=== PATIENT | male | born 1945 | race Caucasian/White ===

== ENCOUNTER 2017-03-17 06:49 | Inpatient (IN) | payer MEDICARE ==
[2017-03-17] VITALS (10 sets, daily range): BP systolic 116–143; BP diastolic 62–89; PULSE 83–111; RESP 16–20; TEMP 98.1–98.8; O2SAT 96–100
[~2017-03-17] VITALS: Ht 170.2 cm; Wt 113.5 kg
[~2017-03-17 06:49] MED LIST: ATOR10 PO; CARD240C6 PO; DIGO0.253 PO; LEVO50TA4 PO; NORC7.5T PO; RIVA10 PO; TAB-TAB PO
[2017-03-17] MEDS ORDERED: ASPIRIN 81 MG CHEW TAB PO ONE (07:15)
[2017-03-17] MEDS ORDERED: SODIUM CHLORIDE 0.9% FLUSH 10 ML FLUSH IVF PRN (07:15)
[2017-03-17] MEDS ORDERED: NITROGLYCERIN 2% OINT 1 GM PACKET TOP ONE (07:15)
--- NOTE | 2017-03-17 07:15 | PD ---
HPI Chief Complaint: General Weakness Time Seen by Provider: 07:09 Travel History International Travel<30 days: No Contact w/Intl Traveler<30days: No Traveled to known affect area: No History of Present Illness HPI The patient is a 71 year-old male who presents emergency department for shortness of breath. The patient notes a 1 month history of progressing shortness of breath, worse with exertion that is mildly alleviated at rest. Patient also complains of intermittent left-sided chest pain which she describes as sharp, pleuritic, and worse with inspiration. The patient does state he'll walk 5-10 feet become short of breath, has difficulty walking across the room secondary to shortness of breath. 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 The patient denies any known history of coronary artery disease and is unsure if he is never had a stress test in the past, he denies any previous cardiac catheterization. The patient does have a history of hypertension, hyperlipidemia, A. fib, diabetes, and remote history of smoking, quit in 1987. The patient also complains of bilateral leg weakness secondary to osteoarthritis. Symptoms are moderate, worse with exertion, and mildly alleviated at rest. The patient's primary physician is Dr. Doll. [facility] Past Medical History Arthritis: Yes Cancer: No Cardiovascular Problems: Yes ("FLUTTER" ) High Cholesterol: Yes Diabetes: No Endocrine: Yes Genitourinary: Yes (URINARY FREQUENCY ) Hepatitis: No Hiatal Hernia: No Hypertension: Yes Immune Disorder: No Musculoskeletal: Yes (ARTHRITIS-WALKS WITH CANE) Neurologic: No Psychiatric: No Reproductive: No Respiratory: No Thyroid Disease: Yes Past Surgical History Abdominal Surgery: Yes (1987 EXP LAP WITH POSSIBLE APPENDECTOMY AND COLOSTOMY; REVERSE COLOSTOMY ) AICD: No Body Medical Devices: MESH ABDOMEN Cardiac Surgery: No Ear Surgery: No Endocrine Surgery: No Eye Surgery: No Genitourinary Surgery: No Gynecologic Surgery: No Oral Surgery: No Pacemaker: No Thoracic Surgery: No Other Surgery: Yes (CYST REMOVAL ON FACE ) Social History Alcohol Use: No Tobacco Use: No (quit in 1987) Substance Use: No Allergies-Medications (Allergen,Severity, Reaction): Coded Allergies: No Known Allergies (Unverified , 03/17/17) Reported Meds & Prescriptions Reported Meds & Active Scripts Active Reported [tanzeum pen inj] 30 Mg IN DAILY Metoprolol Tartrate 25 Mg Tab 25 Mg PO BID Digoxin 0.25 Mg Tab 125 Mcg PO DAILY per minor instruction only to take 125 mcg per day Cartia Xt (Diltiazem ER 24 HR) 240 Mg Caper 240 Mg PO DAILY Metformin (Metformin HCl) 500 Mg Tab 500 Mg PO DAILY With a meal Losartan (Losartan Potassium) 50 Mg Tab 50 Mg PO DAILY Levothyroxine (Levothyroxine Sodium) 50 Mcg Tab 50 Mcg PO DAILY Atorvastatin (Atorvastatin Calcium) 10 Mg Tab 10 Mg PO HS Review of Systems Except as stated in HPI: all other systems reviewed are Neg General / Constitutional: Positive: Fever (intermittent subjective fevers) HENT: No: Lightheadedness Cardiovascular: Positive: Chest Pain or Discomfort, Irregular Rhythm, Tachycardia, Dyspnea on exertion Respiratory: Positive: Shortness of Breath, No: Cough Gastrointestinal: No: Nausea, Vomiting, Abdominal Pain Musculoskeletal: Positive: Weakness, Pain (bilateral knee pain secondary to osteoarthritis) Neurologic: Positive: Weakness Physical Exam Narrative GENERAL: Awake, alert, pleasant 71-year-old male who appears his stated age and is in mild respiratory distress. SKIN: Focused skin assessment warm/dry. HEAD: Atraumatic. Normocephalic. EYES: Pupils equal and round. No scleral icterus. No injection or drainage. ENT: No nasal bleeding or discharge. Mucous membranes pink and moist. NECK: Trachea midline. No JVD. CARDIOVASCULAR: Irregularly irregular RESPIRATORY: Mild tachypnea with a respiratory rate of 22. Scattered rhonchi in the left base. GASTROINTESTINAL: Abdomen soft, non-tender, nondistended. No rebound tenderness. Well-healed midline surgical scar. Large left paracentral hernia with no erythema or tenderness. Scrotal: No erythema noted over the phallus or drainage from the meatus. The scrotum is erythematous with mild induration of the right aspect, mild erythema extends into the perirectal area. Could be early necrotizing fasciitis versus fungal. MUSCULOSKELETAL: No obvious deformities. No clubbing. No cyanosis. No edema. NEUROLOGICAL: Awake and alert. No obvious cranial nerve deficits. Motor grossly within normal limits. Normal speech. PSYCHIATRIC: Appropriate mood and affect; insight and judgment normal. Data Data Last Documented VS Vital Signs Date Time Temp Pulse Resp B/P Pulse Ox O2 Delivery O2 Flow Rate FiO2 03/17/17 07:28 86 143/83 98 Nasal Cannula 2 139/77 03/17/17 07:06 20 03/17/17 06:53 98.1 Orders Electrocardiogram (03/17/17 07:09) B-Type Natriuretic Peptide (03/17/17 07:09) Ckmb (Isoenzyme) Profile (03/17/17 07:09) Complete Blood Count With Diff (03/17/17 07:09) Comprehensive Metabolic Panel (03/17/17 07:09) Magnesium (Mg) (03/17/17 07:09) Prothrombin Time / Inr (Pt) (03/17/17 07:09) Act Partial Throm Time (Ptt) (03/17/17 07:09) Troponin I (03/17/17 07:09) Chest, Single Ap (03/17/17 07:09) Ecg Monitoring (03/17/17 07:09) Bilateral Bp Monitoring (03/17/17 07:09) Iv Access Insert/Monitor (03/17/17 07:09) Oximetry (03/17/17 07:09) Oxygen Administration (03/17/17 07:09) Aspirin Chew (Aspirin Chew) (03/17/17 07:15) Nitroglycerin 2% Oint (Nitroglycerin 2% (03/17/17 07:15) Sodium Chloride 0.9% Flush (Ns Flush) (03/17/17 07:15) Digoxin (03/17/17 07:09) Lactic Acid (03/17/17 07:42) Blood Culture (03/17/17 07:42) Urinalysis - C+S If Indicated (03/17/17 07:42) CKMB (03/17/17 07:20) CKMB% (03/17/17 07:20) Sodium Chlorid 0.9% 500 Ml Inj (Ns 500 M (03/17/17 08:30) Ceftriaxone Inj (Rocephin Inj) (03/17/17 08:30) Azithromycin Inj (Zithromax Inj) (03/17/17 08:30) Sodium Chlor 0.9% 1000 Ml Inj (Ns 1000 M (03/17/17 08:30) Ct Abd/Pel W Iv Contrast(Rout) (03/17/17 ) Admit Order (Ed Use Only) (03/17/17 09:03) Labs Laboratory Tests Test 03/17/17 03/17/17 07:20 08:28 White Blood Count 30.4 TH/MM3 Red Blood Count 5.46 MIL/MM3 Hemoglobin 14.9 GM/DL Hematocrit 44.8 % Mean Corpuscular Volume 82.1 FL Mean Corpuscular Hemoglobin 27.2 PG Mean Corpuscular Hemoglobin 33.2 % Concent Red Cell Distribution Width 14.1 % Platelet Count 308 TH/MM3 Mean Platelet Volume 9.1 FL Neutrophils (%) (Auto) 88.2 % Lymphocytes (%) (Auto) 6.6 % Monocytes (%) (Auto) 3.5 % Eosinophils (%) (Auto) 1.1 % Basophils (%) (Auto) 0.6 % Neutrophils # (Auto) 26.8 TH/MM3 Lymphocytes # (Auto) 2.0 TH/MM3 Monocytes # (Auto) 1.1 TH/MM3 Eosinophils # (Auto) 0.3 TH/MM3 Basophils # (Auto) 0.2 TH/MM3 CBC Comment AUTO DIFF Differential Total Cells 100 Counted Neutrophils % (Manual) 81 % Band Neutrophils % 11 % Lymphocytes % 4 % Monocytes % 3 % Eosinophils % 1 % Neutrophils # (Manual) 28.0 TH/MM3 Differential Comment FINAL DIFF MANUAL Platelet Estimate NORMAL Platelet Morphology Comment NORMAL Red Cell Morphology Comment NORMAL Prothrombin Time 13.6 SEC Prothromb Time International 1.2 RATIO Ratio Activated Partial 25.9 SEC Thromboplast Time Sodium Level 134 MEQ/L Potassium Level 5.5 MEQ/L Chloride Level 100 MEQ/L Carbon Dioxide Level 22.1 MEQ/L Anion Gap 12 MEQ/L Blood Urea Nitrogen 18 MG/DL Creatinine 1.06 MG/DL Estimat Glomerular Filtration 69 ML/MIN Rate Random Glucose 191 MG/DL Calcium Level 9.2 MG/DL Magnesium Level 2.3 MG/DL Total Bilirubin 0.6 MG/DL Aspartate Amino Transf 132 U/L (AST/SGOT) Alanine Aminotransferase 33 U/L (ALT/SGPT) Alkaline Phosphatase 122 U/L Total Creatine Kinase 1989 U/L Creatine Kinase MB 6.9 NG/ML Creatine Kinase MB % 0.3 % Troponin I LESS THAN 0.02 NG/ML B-Type Natriuretic Peptide 122 PG/ML Total Protein 7.8 GM/DL Albumin 2.4 GM/DL Digoxin Level 0.7 NG/ML Lactic Acid Level 1.7 mmol/L MDM Medical Decision Making Medical Screen Exam Complete: Yes Emergency Medical Condition: Yes Medical Record Reviewed: Yes Interpretation(s) EKG reveals atrial fibrillation with a rate 81. Low QRS voltage precordial leads. Laboratory Tests Test 03/17/17 07:20 White Blood Count 30.4 TH/MM3 Red Blood Count 5.46 MIL/MM3 Hemoglobin 14.9 GM/DL Hematocrit 44.8 % Mean Corpuscular Volume 82.1 FL Mean Corpuscular Hemoglobin 27.2 PG Mean Corpuscular Hemoglobin 33.2 % Concent Red Cell Distribution Width 14.1 % Platelet Count 308 TH/MM3 Mean Platelet Volume 9.1 FL Neutrophils (%) (Auto) 88.2 % Lymphocytes (%) (Auto) 6.6 % Monocytes (%) (Auto) 3.5 % Eosinophils (%) (Auto) 1.1 % Basophils (%) (Auto) 0.6 % Neutrophils # (Auto) 26.8 TH/MM3 Lymphocytes # (Auto) 2.0 TH/MM3 Monocytes # (Auto) 1.1 TH/MM3 Eosinophils # (Auto) 0.3 TH/MM3 Basophils # (Auto) 0.2 TH/MM3 CBC Comment AUTO DIFF Differential Total Cells 100 Counted Neutrophils % (Manual) 81 % Band Neutrophils % 11 % Lymphocytes % 4 % Monocytes % 3 % Eosinophils % 1 % Neutrophils # (Manual) 28.0 TH/MM3 Differential Comment FINAL DIFF MANUAL Platelet Estimate NORMAL Platelet Morphology Comment NORMAL Red Cell Morphology Comment NORMAL Prothrombin Time 13.6 SEC Prothromb Time International 1.2 RATIO Ratio Activated Partial 25.9 SEC Thromboplast Time Sodium Level 134 MEQ/L Potassium Level 5.5 MEQ/L Chloride Level 100 MEQ/L Carbon Dioxide Level 22.1 MEQ/L Anion Gap 12 MEQ/L Blood Urea Nitrogen 18 MG/DL Creatinine 1.06 MG/DL Estimat Glomerular Filtration 69 ML/MIN Rate Random Glucose 191 MG/DL Calcium Level 9.2 MG/DL Magnesium Level 2.3 MG/DL Total Bilirubin 0.6 MG/DL Aspartate Amino Transf 132 U/L (AST/SGOT) Alanine Aminotransferase 33 U/L (ALT/SGPT) Alkaline Phosphatase 122 U/L Total Creatine Kinase 1989 U/L Creatine Kinase MB 6.9 NG/ML Creatine Kinase MB % 0.3 % Troponin I LESS THAN 0.02 NG/ML B-Type Natriuretic Peptide 122 PG/ML Total Protein 7.8 GM/DL Albumin 2.4 GM/DL Digoxin Level 0.7 NG/ML Last Impressions Chest X-Ray 03/17/17 0709 Signed Impressions: Service Date/Time: Friday, March 17, 2017 07:15 - CONCLUSION: No acute disease. Ashish Giles MD Abdomen/Pelvis CT 03/17/17 0000 Signed Impressions: Service Date/Time: Friday, March 17, 2017 09:25 - CONCLUSION: 1. 14 cm cystic area within the scrotum on the left as described above. There is no significant inflammatory change and this may reflect sebaceous type cysts. 2. 12 cm pseudocyst versus hematoma versus less likely abscess involving the spleen. Again there is no significant surrounding inflammatory process. 3. Large nonincarcerated abdominal wall hernia. Ignacio Camargo MD Differential Diagnosis Differential diagnosis includes atrial fibrillation with RVR, congestive heart failure, cardiomyopathy, acute coronary syndrome, pleural effusion, pneumonia, pulmonary embolism, hyponatremia, sepsis. Narrative Course IV was established, labs are drawn and sent, and the patient was placed on cardiac telemetry monitoring and continuous pulse oximetry monitoring. EKG was ordered and interpreted. Chest x-ray was obtained. The patient was administered aspirin, nitroglycerin 0.5 inches to the chest wall, and monitored in the emergency department. The patient's chest x-ray reveals no acute disease. However, white count was elevated at 30.4, therefore, blood culture, lactic acid, and UA were sent to lab. No evidence of pneumonia on chest x-ray, however, patient has rhonchi in the left base, suspicious of left lower lobe pneumonia. Patient does have bandemia with 11% with elevated white count, therefore, was covered with Rocephin and Zithromax. Patient's CPK is greater than 1900, consistent with rhabdomyolysis, therefore, patient was administered normal saline 500 cc, pending BNP. The patient was not immediately administered 30 mg/kg of IV fluids for possible sepsis, awaiting BNP. Patient' s elevated CPK possibly could be secondary to the atorvastatin, the patient's atorvastatin should be held. The patient has [facility], therefore, [facility] was paged for admission. The patient's BNP was 122, therefore, 1 L of normal saline was ordered after the initial bolus. The patient was reevaluated, abdomen was soft and benign with well-healed surgical scar, scrotum was a little erythematous with skin changes of the right aspect of the scrotum, patient states that has been present for several months. Therefore, CT the abdomen and pelvis was ordered to rule out abscess/necrotizing fasciitis. I discussed the patient Dr. Watkins who agrees with admission. Sepsis Criteria SIRS Criteria (2 or more): Heart rate over 90, WBC > 76085, < 4000 or > 10% bands Criteria Outcome: Meets SIRS criteria Physician Communication Physician Communication [facility] was paged for admission. I discussed the patient Dr. Watkins who agrees with admission. Diagnosis Primary Impression: Rhabdomyolysis Qualified Code: M62.82 - Non-traumatic rhabdomyolysis Additional Impressions: Leukocytosis Qualified Code: D72.825 - Bandemia Dyspnea on exertion Admitting Information Admitting Physician Requests: Admit Condition: Stable James Roberson MD March 17, 2017 07:15
[2017-03-17 07:35] LABS: AUTOMATED NEUTROPHIL # 26.8 TH/MM3 (1.8-7.7); BASOPHIL # 0.2 TH/MM3 (0-0.2); BASOPHIL % 0.6 % (0.0-2.0); EOSINOPHIL # 0.3 TH/MM3 (0-0.4); EOSINOPHIL % 1.1 % (0.0-4.0); HEMATOCRIT 44.8 % (39.0-51.0); LYMPH % 6.6 % (9.0-44.0); MEAN CELL VOLUME 82.1 FL (80.0-100.0); MEAN CORPUSCULAR HEMOGLOBIN 27.2 PG (27.0-34.0); MEAN CORPUSCULAR HGB CONC 33.2 % (32.0-36.0); MONO % 3.5 % (0.0-8.0); NEUT % 88.2 % (16.0-70.0); PLATELET COUNT 308 TH/MM3 (150-450); RED BLOOD COUNT 5.46 MIL/MM3 (4.50-5.90); RED CELL DISTRIBUTION WIDTH 14.1 % (11.6-17.2); WHITE BLOOD COUNT 30.4 TH/MM3 (4.0-11.0)
[2017-03-17 07:36] LABS: HEMO FLAGS AUTO DIFF
[2017-03-17] MEDS ORDERED: ATOR10TA15 PO (07:37)
[2017-03-17] MEDS ORDERED: DIGO0.25 PO (07:37)
[2017-03-17] MEDS ORDERED: LOSA50TA PO (07:37)
[2017-03-17] MEDS ORDERED: TANZEUM IN (07:37)
[2017-03-17] MEDS ORDERED: METF500T PO (07:37)
[2017-03-17] MEDS ORDERED: METO25TA3 PO (07:37)
[2017-03-17] MEDS ORDERED: LEVO50TA4 PO (07:37)
[2017-03-17] MEDS ORDERED: CART240C PO (07:37)
--- NOTE | 2017-03-17 07:42 | RADRPT ---
EXAM DATE/TIME: 03/17/2017 07:15 [facility] COMPARISON: CHEST SINGLE AP, July 26, 2014, 11:08. INDICATIONS : Left side chest pains and pressure radiating into left shoulder. MEDICAL HISTORY : None. SURGICAL HISTORY : None. ENCOUNTER: Initial ACUITY: 1 day PAIN SCORE: 9/10 LOCATION: Left chest FINDINGS: A single view of the chest demonstrates the lungs to be symmetrically aerated without evidence of mas s, infiltrate or effusion. The cardiomediastinal contours are unremarkable. Osseous structures are intact. CONCLUSION: No acute disease. Ashish Giles MD on March 17, 2017 at 7:39 Board Certified Radiologist. This report was verified electronically.
[2017-03-17 07:46] LABS: APTT (PATIENT) 25.9 SEC (24.3-30.1); INTERNATIONAL NORMALIZED RATIO 1.2 RATIO; PROTHROMBIN TIME - PATIENT 13.6 SEC (9.8-11.6)
[2017-03-17 08:05] LABS: BANDS 11 % (0-6); EOSINOPHILS 1 % (0-4); PLATELET ESTIMATE SMEAR NORMAL (NORMAL); PLATELET MORPHOLOGY NORMAL (NORMAL); POLYS (SEG NEUTROPHILS) 81 % (16-70); SCAN/DIFF FINAL DIFF MANUAL; WBC DIFF SAMPLE 100
[2017-03-17 08:06] LABS: ANION GAP 12 MEQ/L (5-15)
[2017-03-17 08:13] LABS: ALKALINE PHOSPHATASE 122 U/L (45-117); ALT (GPT) 33 U/L (12-78); AST (GOT) 132 U/L (15-37); BICARBONATE 22.1 MEQ/L (21.0-32.0); BLOOD UREA NITROGEN 18 MG/DL (7-18); CHLORIDE 100 MEQ/L (98-107); CREATINE KINASE 1989 U/L (39-308); DIGOXIN 0.7 NG/ML (0.8-2.0); GLOMERULAR FILTRATION RATE 69 ML/MIN (>89); MAGNESIUM 2.3 MG/DL (1.5-2.5); SODIUM (NA) 134 MEQ/L (136-145); TOTAL BILIRUBIN ADULT 0.6 MG/DL (0.2-1.0)
[2017-03-17 08:15] LABS: POTASSIUM 5.5 MEQ/L (3.5-5.1)
[2017-03-17 08:27] LABS: CKMB 6.9 NG/ML (0.5-3.6)
[2017-03-17] MEDS ORDERED: SODIUM CHLOR 0.9% 1000 ML INJ 1,000 ML IV ONE (08:30)
[2017-03-17] MEDS ORDERED: cefTRIAXone INJ 1,000 MG in SODIUM CHLORIDE 0.9% INJ 100 ML IV ONE (08:30)
[2017-03-17] MEDS ORDERED: AZITHROMYCIN INJ 500 MG in SODIUM CHLOR 0.9% 250 ML INJ 250 ML IV ONE (08:30)
[2017-03-17] MEDS ORDERED: SODIUM CHLORID 0.9% 500 ML INJ 500 ML IV ONE (08:30)
[2017-03-17] MEDS: METFORMIN HOLD POST IV CONTRAST SCH (09:30)
[2017-03-17] MEDS ORDERED: IOHEXOL 350 MG/ML 10 ML VIAL (for RAD DIAG) IV ONE (09:42)
[2017-03-17 10:11] LABS: BACTERIA, URINE RARE /hpf; BLOOD, URINE MOD (NEG); COMMENT (UR) CULT NOT INDICATED; CULTURE IF INDICATED CULT NOT INDICATED; GLUCOSE,URINE 150 mg/dL (NEG); HYALINE CAST, URINE 8 /lpf (RARE); KETONE, URINE 10 mg/dL (NEG); MUCUS URINE MOD /lpf (OCC); NITRITE,URINE NEG (NEG); SQUAMOUS EPITHELIAL CELL URINE 5 /hpf (0-5); URINE COLOR YELLOW (YELLW/STRAW)
--- NOTE | 2017-03-17 10:26 | RADRPT ---
EXAM DATE/TIME: 03/17/2017 09:25 [facility] COMPARISON: No previous studies available for comparison. INDICATIONS : Upper abdominal pain and lower abdominal pain. Evaluate for scrotal abscess. IV CONTRAST: 85 cc Omnipaque 350 (iohexol) IV ORAL CONTRAST: No oral contrast ingested. RADIATION DOSE: 15.99 CTDIvol (mGy) MEDICAL HISTORY : Diabetes mellitus type 2. Hypertension. Abdominal abscess. SURGICAL HISTORY : Colostomy. Colostomy reversal. ENCOUNTER: Initial ACUITY: 2 days PAIN SCALE: 2/10 LOCATION: Abdomen. TECHNIQUE: Volumetric scanning of the abdomen and pelvis was performed. Using automated exposure control and ad justment of the mA and/or kV according to patient size, radiation dose was kept as low as reasonably achievable to obtain optimal diagnostic quality images. FINDINGS: Examination of the lung bases demonstrates no abnormality. No pleural fluid is identified. No pulmona ry nodules are present. The gallbladder and pancreas are unremarkable. No intrahepatic or extrahepati c ductal dilatation is seen. Examination the spleen demonstrates a large hypodense fluid collection m easuring 12 CM by 9 CM occupying the superior half of the spleen which may be related to old hematoma pseudocyst or less likely abscess. There is only minimal inflammatory change surrounding this. No ab normally enlarged lymph nodes are identified. There is a large left lateral anterior abdominal wall h ernia containing small bowel with a wide defect and no signs of incarceration. Examination of the pelvis demonstrates no evidence of free fluid or pelvic mass. No abnormally enlarg ed inguinal or retroperitoneal lymph nodes are present. The bladder is unremarkable. There is a 3.4 c m fluid density area without surrounding inflammatory change. The appearance may reflect sebaceous ty pe cyst rather than abscess and this would be accessible to percutaneous aspiration. CONCLUSION: 1. 14 cm cystic area within the scrotum on the left as described above. There is no significant infla mmatory change and this may reflect sebaceous type cysts. 2. 12 cm pseudocyst versus hematoma versus less likely abscess involving the spleen. Again there is n o significant surrounding inflammatory process. 3. Large nonincarcerated abdominal wall hernia. Ignacio Camargo MD on March 17, 2017 at 10:16 Board Certified Radiologist. This report was verified electronically.
[2017-03-17] MEDS: SODIUM CHLOR 0.9% 1000 ML INJ 1,000 ML IV SCH ×2 (12:00→22:59)
--- NOTE | 2017-03-17 12:14 | HHI.HP ---
HPI Service [facility] Primary Care Physician Jj Doll M.D. Admission Diagnosis rhabdomyolysis, leukocytosis with bandemia, dyspnea on exertion Chief Complaint: sob Travel History International Travel<30 Days: No Contact w/Intl Traveler <30 Da: No Traveled to Known Affected Are: No History of Present Illness Pt is 71 yo with dm, afib who had been progressively more sob. says about 2 weeks ago he fell off bed after returning from bathroom. He describes alot of nocturia and bph problems. He later fell again. At once point was on floor for 5 hours. Described 2 episodes of shaking chills with teeth chattering. no n/v/d. Review of Systems Other sob shaking chills falls x 2 Past Family Social History Past Medical History Atrial fibrillation Diabetes mellitus, type 2 HTN Hyperlipidemia Hypothyroidism Obesity Osteoarthritis bph Past Surgical History Left total knee arthroplasty in 2013 colostomy and reversal. Reported Medications Metoprolol Tartrate 25 Mg Tab 25 Mg PO BID Digoxin 0.25 Mg Tab 125 Mcg PO DAILY per dr bell instruction only to take 125 mcg per day Cartia Xt (Diltiazem ER 24 HR) 240 Mg Caper 240 Mg PO DAILY Metformin (Metformin HCl) 500 Mg Tab 500 Mg PO DAILY With a meal Losartan (Losartan Potassium) 50 Mg Tab 50 Mg PO DAILY Levothyroxine (Levothyroxine Sodium) 50 Mcg Tab 50 Mcg PO DAILY Atorvastatin (Atorvastatin Calcium) 10 Mg Tab 10 Mg PO HS ---ASA 325mg PO DAILY Allergies: Coded Allergies: No Known Allergies (Unverified , 03/17/17) Family History Mother from gastric cancer Father from CAD and diabetes Social History Hx of tobacco use, smoked 2ppd x 22 years Denies any alcohol or illicit drug use Physical Exam Vital Signs Vital Signs Date Time Temp Pulse Resp B/P Pulse Ox O2 Delivery O2 Flow Rate FiO2 03/17/17 11:38 98 20 120/84 99 Nasal Cannula 2 03/17/17 07:28 86 143/83 98 Nasal Cannula 2 139/77 03/17/17 07:27 100 Nasal Cannula 2 03/17/17 07:13 99 Nasal Cannula 2 03/17/17 07:06 105 20 03/17/17 06:53 98.1 95 16 124/89 97 Physical Exam GENERAL: This is a well-nourished, well-developed patient, in no apparent distress. HEENT: Atraumatic. Normocephalic. No temporal or scalp tenderness. No scleral icterus. Airway patent. NECK: Trachea midline, supple, nontender. CARDIO: Regular. RESP: CTA bilaterally. No wheezes, rales, or rhonchi. ABD: +BS, soft, non-tender, nondistended. EXT: Extremities without clubbing, cyanosis, or edema. NEURO: Awake and alert. Motor and sensory grossly within normal limits. Normal speech. Laboratory Laboratory Tests Test 03/17/17 03/17/17 03/17/17 07:20 08:28 09:59 White Blood Count 30.4 Red Blood Count 5.46 Hemoglobin 14.9 Hematocrit 44.8 Mean Corpuscular Volume 82.1 Mean Corpuscular Hemoglobin 27.2 Mean Corpuscular Hemoglobin 33.2 Concent Red Cell Distribution Width 14.1 Platelet Count 308 Mean Platelet Volume 9.1 Neutrophils (%) (Auto) 88.2 Lymphocytes (%) (Auto) 6.6 Monocytes (%) (Auto) 3.5 Eosinophils (%) (Auto) 1.1 Basophils (%) (Auto) 0.6 Neutrophils # (Auto) 26.8 Lymphocytes # (Auto) 2.0 Monocytes # (Auto) 1.1 Eosinophils # (Auto) 0.3 Basophils # (Auto) 0.2 CBC Comment AUTO DIFF Differential Total Cells 100 Counted Neutrophils % (Manual) 81 Band Neutrophils % 11 Lymphocytes % 4 Monocytes % 3 Eosinophils % 1 Neutrophils # (Manual) 28.0 Differential Comment FINAL DIFF MANUAL Platelet Estimate NORMAL Platelet Morphology Comment NORMAL Red Cell Morphology Comment NORMAL Prothrombin Time 13.6 Prothromb Time International 1.2 Ratio Activated Partial 25.9 Thromboplast Time Sodium Level 134 Potassium Level 5.5 Chloride Level 100 Carbon Dioxide Level 22.1 Anion Gap 12 Blood Urea Nitrogen 18 Creatinine 1.06 Estimat Glomerular Filtration 69 Rate Random Glucose 191 Calcium Level 9.2 Magnesium Level 2.3 Total Bilirubin 0.6 Aspartate Amino Transf 132 (AST/SGOT) Alanine Aminotransferase 33 (ALT/SGPT) Alkaline Phosphatase 122 Total Creatine Kinase 1989 Creatine Kinase MB 6.9 Creatine Kinase MB % 0.3 Troponin I LESS THAN 0.02 B-Type Natriuretic Peptide 122 Total Protein 7.8 Albumin 2.4 Digoxin Level 0.7 Lactic Acid Level 1.7 Urine Color YELLOW Urine Turbidity HAZY Urine pH 6.0 Urine Specific [place] 1.046 Urine Protein 30 Urine Glucose (UA) 150 Urine Ketones 10 Urine Occult Blood MOD Urine Nitrite NEG Urine Bilirubin NEG Urine Urobilinogen LESS THAN 2.0 Urine Leukocyte Esterase NEG Urine RBC 4 Urine WBC 3 Urine Squamous Epithelial 5 Cells Urine Bacteria RARE Urine Hyaline Casts 8 Urine Mucus MOD Microscopic Urinalysis Comment CULT NOT INDICATED Date/Time Procedure Status Source Growth 03/17/17 08:28 Aerobic Blood Culture Received Blood Peripheral Pending 03/17/17 08:28 Anaerobic Blood Culture Received Blood Peripheral Pending Result Diagram: 03/17/17 0720 03/17/17 0720 Imaging Last Impressions Chest X-Ray 03/17/17 0709 Signed Impressions: Service Date/Time: Friday, March 17, 2017 07:15 - CONCLUSION: No acute disease. Ashish Giles MD Abdomen/Pelvis CT 03/17/17 0000 Signed Impressions: Service Date/Time: Friday, March 17, 2017 09:25 - CONCLUSION: 1. 14 cm cystic area within the scrotum on the left as described above. There is no significant inflammatory change and this may reflect sebaceous type cysts. 2. 12 cm pseudocyst versus hematoma versus less likely abscess involving the spleen. Again there is no significant surrounding inflammatory process. 3. Large nonincarcerated abdominal wall hernia. Ignacio Camargo MD Assessment and Plan Problem List: (1) Dyspnea on exertion Status: Acute Plan: Pt with dm and afib increase falling at home..rhabdomyolysis sob. severe leukocytosis. unclear etiology. eval for pna rigors. eval for bacteremia general weakness. yeast infections groin/folds abnormal ct a/p discusses what appears to be chronic findings in spleen/scrotum and less likely infectious.. ..further w/up on ct findings as needed. blood cx's ivf and recheck ck cont abx initiated. echo. image chest. telemetry. eval for afib rate control. recently added bb per pcp. ssi dvt prophylaxis (2) Rhabdomyolysis Status: Acute Plan: see above (3) Afib Status: Chronic Plan: see above (4) Leukocytosis Status: Acute Plan: see above (5) Hyperlipidemia Status: Chronic (6) Hypothyroid Status: Chronic (7) HTN (hypertension) Status: Chronic Physician Certification 2 Midnight Certification Type: Admission for Inpatient Services Order for Inpatient Services 3The services are ordered in accordance with Medicare regulations or non- Medicare payer requirements, as applicable. In the case of services not specified as inpatient-only, they are appropriately provided as inpatient services in accordance with the 2-midnight benchmark. Estimated LOS (days): 3 3 days is the estimated time the patient will need to remain in the hospital, assuming treatment plan goals are met and no additional complications. Post-Hospital Plan: Home Problem Qualifiers (1) Rhabdomyolysis: Qualified Code: M62.82 - Non-traumatic rhabdomyolysis (2) Leukocytosis: Qualified Code: D72.825 - Bandemia Nayla Rodriguez March 17, 2017 12:14 James Watkins MD March 17, 2017 22:17
[2017-03-17] MEDS: NYSTATIN 100,000 U/GM PWD 15 GM BTL TOPICAL SCH ×2 (18:43→21:17)
[2017-03-17] MEDS: METOPROLOL TARTRATE 25 MG TAB PO SCH (21:18)
[2017-03-17] MEDS: INSULIN ASPART SUPPLEMENTAL SCALE SQ SCH (21:29)
[2017-03-17] MEDS: traMADol HCL 50 MG TAB PO PRN (22:59)
[2017-03-18] VITALS (8 sets, daily range): BP systolic 124–157; BP diastolic 65–97; PULSE 86–121; RESP 18–20; TEMP 97.7–98.6; O2SAT 92–98
[2017-03-18] MEDS: traMADol HCL 50 MG TAB PO PRN (05:39)
[2017-03-18] MEDS: INSULIN ASPART SUPPLEMENTAL SCALE SQ SCH ×4 (05:39→22:12)
[2017-03-18] MEDS: NYSTATIN 100,000 U/GM PWD 15 GM BTL TOPICAL SCH ×3 (05:39→22:00)
[2017-03-18 05:56] LABS: AUTOMATED NEUTROPHIL # 19.5 TH/MM3 (1.8-7.7); BASOPHIL # 0.3 TH/MM3 (0-0.2); BASOPHIL % 1.2 % (0.0-2.0); EOSINOPHIL # 0.2 TH/MM3 (0-0.4); HEMATOCRIT 37.4 % (39.0-51.0); HEMO FLAGS DIFF FINAL; LYMPH % 10.6 % (9.0-44.0); LYMPHOCYTE # 2.5 TH/MM3 (1.0-4.8); MEAN CELL VOLUME 82.9 FL (80.0-100.0); MEAN CORPUSCULAR HEMOGLOBIN 27.3 PG (27.0-34.0); MONO % 5.4 % (0.0-8.0); NEUT % 81.8 % (16.0-70.0); PLATELET COUNT 258 TH/MM3 (150-450); RED BLOOD COUNT 4.52 MIL/MM3 (4.50-5.90); RED CELL DISTRIBUTION WIDTH 13.7 % (11.6-17.2); WHITE BLOOD COUNT 23.9 TH/MM3 (4.0-11.0)
[2017-03-18 06:31] LABS: POTASSIUM 4.1 MEQ/L (3.5-5.1)
[2017-03-18 06:58] LABS: CKMB 4.8 NG/ML (0.5-3.6)
[2017-03-18] MEDS ORDERED: PNEUMOCOCCAL POLYVALENT INJ 25 MCG/0.5 ML SYR IM ONE (09:00)
--- NOTE | 2017-03-18 09:29 | RADRPT ---
EXAM DATE/TIME: 03/18/2017 08:59 [place] COMPARISON: CT ABDOMEN & PELVIS W CONTRAST, March 17, 2017, 9:25. INDICATIONS : Shortness of breath, left side chest and shoulder pain with inspiration. RADIATION DOSE: 9.33 CTDIvol (mGy) MEDICAL HISTORY : Cardiovascular disease. Hypertension. Diabetes mellitus type 1. SURGICAL HISTORY : Colostomy. ENCOUNTER: Initial ACUITY: 1 day PAIN SCALE: 3/10 LOCATION: Left upper chest TECHNIQUE: Volumetric scanning of the chest was performed. Using automated exposure control and adjustment of t he mA and/or kV according to patient size, radiation dose was kept as low as reasonably achievable to obtain optimal diagnostic quality images. FINDINGS: A small left sided effusion is present. No pulmonary nodules are identified. Examination of the mediastinum demonstrates no abnormally enlarged lymph nodes by CT criteria. No axi llary or hilar abnormalities are identified. Coronary artery calcifications are not present. A 3 cm s ebaceous cyst is present in the anterior right chest wall. The lower fluid collection the spleen is a gain identified. CONCLUSION: 1. Small left effusion Ignacio Camargo MD on March 18, 2017 at 9:25 Board Certified Radiologist. This report was verified electronically.
[2017-03-18] MEDS: METFORMIN HOLD POST IV CONTRAST SCH (09:30)
[2017-03-18] MEDS: DILTIAZEM-CD 240 MG CAP ER PO SCH (09:36)
[2017-03-18] MEDS: LOSARTAN 50 MG TAB PO SCH (09:36)
[2017-03-18] MEDS: LEVOTHYROXINE SODIUM 50 MCG TAB PO SCH (09:36)
[2017-03-18] MEDS: METOPROLOL TARTRATE 25 MG TAB PO SCH ×2 (09:37→21:00)
[2017-03-18] MEDS: DIGOXIN 0.125 MG TAB PO SCH (09:37)
--- NOTE | 2017-03-18 11:20 | EKG ---
Date Performed: 03/17/2017 Time Performed: 07:18:06 PTAGE: 71 years EKG: ATRIAL FIBRILLATION LOW QRS VOLTAGE IN PRECORDIAL LEADS ABNORMAL RHYTHM ECG NO PREVIOUS TRACING DOCTOR: Agustin Hastings Interpretating Date/Time 03/18/2017 11:18:26
[2017-03-18] MEDS: SODIUM CHLOR 0.9% 1000 ML INJ 1,000 ML IV SCH ×2 (11:49→22:10)
--- NOTE | 2017-03-18 17:23 | HHI.PR ---
Subjective Remarks legs still weak hasn't been oob. Objective Vitals heart reg lung cta abd s/nt ext no edema/ ecchymosis on shins/knees. Vital Signs Date Time Temp Pulse Resp B/P Pulse Ox O2 Delivery O2 Flow Rate FiO2 03/18/17 12:00 97.7 98 20 124/75 92 03/18/17 11:35 95 Nasal Cannula 2.00 03/18/17 11:30 94 Nasal Cannula 3.00 03/18/17 09:30 Nasal Cannula 2.00 03/18/17 08:00 98.6 120 18 133/65 97 144/75 03/18/17 04:15 Nasal Cannula 2.00 03/18/17 04:15 98.5 121 18 134/79 95 03/17/17 23:05 98.8 97 18 135/73 98 03/17/17 23:05 Nasal Cannula 2.00 03/17/17 21:08 96 Nasal Cannula 2.00 03/17/17 20:14 111 03/17/17 20:03 Nasal Cannula 2.00 03/17/17 20:03 98.4 83 18 116/74 98 03/17/17 03/17/17 03/18/17 15:00 23:00 07:00 Intake Total 1600 ml 1469 ml 648 ml Output Total 200 ml 350 ml Balance 1600 ml 1269 ml 298 ml Intake Oral 480 ml 240 ml IV Total 1600 ml 989 ml 408 ml Output Urine Total 200 ml 350 ml # Bowel Movements 0 0 Result Diagram: 03/18/17 0330 03/18/17 0330 Imaging Last Impressions Chest X-Ray 03/17/17 0709 Signed Impressions: Service Date/Time: Friday, March 17, 2017 07:15 - CONCLUSION: No acute disease. Ashish Giles MD Abdomen/Pelvis CT 03/17/17 0000 Signed Impressions: Service Date/Time: Friday, March 17, 2017 09:25 - CONCLUSION: 1. 14 cm cystic area within the scrotum on the left as described above. There is no significant inflammatory change and this may reflect sebaceous type cysts. 2. 12 cm pseudocyst versus hematoma versus less likely abscess involving the spleen. Again there is no significant surrounding inflammatory process. 3. Large nonincarcerated abdominal wall hernia. Ignacio Camargo MD A/P Problem List: (1) Dyspnea on exertion Status: Acute Plan: Pt with dm and afib increase falling at home..rhabdomyolysis sob. severe leukocytosis. unclear etiology. eval for pna rigors. eval for bacteremia general weakness. yeast infections groin/folds abnormal ct a/p discusses what appears to be chronic findings in spleen/scrotum and less likely infectious.. ..further w/up on ct findings as needed. blood cx's pending ivf and recheck ck..cont ivf today cont abx initiated. echo. image chest. pending. telemetry. eval for afib rate control. recently added bb per pcp. ..appears he could use better control ssi dvt prophylaxis PT will likely need snf. (2) Rhabdomyolysis Status: Acute Plan: see above (3) Afib Status: Chronic Plan: see above (4) Leukocytosis Status: Acute Plan: see above (5) Hyperlipidemia Status: Chronic (6) Hypothyroid Status: Chronic (7) HTN (hypertension) Status: Chronic Problem Qualifiers (1) Rhabdomyolysis: Qualified Code: M62.82 - Non-traumatic rhabdomyolysis (2) Leukocytosis: Qualified Code: D72.825 - Bandemia James Watkins MD March 18, 2017 17:23
[2017-03-19] VITALS (8 sets, daily range): BP systolic 133–169; BP diastolic 73–91; PULSE 89–111; RESP 18–20; TEMP 97.8–99.1; O2SAT 94–98
[2017-03-19] MEDS: NYSTATIN 100,000 U/GM PWD 15 GM BTL TOPICAL SCH ×3 (05:36→20:51)
[2017-03-19] MEDS: INSULIN ASPART SUPPLEMENTAL SCALE SQ SCH ×4 (05:39→20:55)
[2017-03-19] MEDS: DIGOXIN 0.125 MG TAB PO SCH (07:54)
[2017-03-19] MEDS: LEVOTHYROXINE SODIUM 50 MCG TAB PO SCH (07:54)
[2017-03-19] MEDS: DILTIAZEM-CD 240 MG CAP ER PO SCH (07:54)
[2017-03-19] MEDS: METOPROLOL TARTRATE 25 MG TAB PO SCH (07:54)
[2017-03-19] MEDS: LOSARTAN 50 MG TAB PO SCH (08:14)
[2017-03-19 08:15] LABS: AUTOMATED NEUTROPHIL # 14.8 TH/MM3 (1.8-7.7); BASOPHIL # 0.2 TH/MM3 (0-0.2); BASOPHIL % 0.8 % (0.0-2.0); EOSINOPHIL # 0.3 TH/MM3 (0-0.4); EOSINOPHIL % 1.5 % (0.0-4.0); HEMATOCRIT 39.2 % (39.0-51.0); HEMO FLAGS DIFF FINAL; LYMPHOCYTE # 2.2 TH/MM3 (1.0-4.8); MEAN CELL VOLUME 81.1 FL (80.0-100.0); MEAN CORPUSCULAR HEMOGLOBIN 27.1 PG (27.0-34.0); MEAN CORPUSCULAR HGB CONC 33.5 % (32.0-36.0); MONO % 5.8 % (0.0-8.0); NEUT % 79.9 % (16.0-70.0); PLATELET COUNT 335 TH/MM3 (150-450); RED BLOOD COUNT 4.84 MIL/MM3 (4.50-5.90); RED CELL DISTRIBUTION WIDTH 14.2 % (11.6-17.2); WHITE BLOOD COUNT 18.5 TH/MM3 (4.0-11.0)
[2017-03-19 08:41] LABS: BICARBONATE 24.8 MEQ/L (21.0-32.0)
[2017-03-19] MEDS ORDERED: DOCUSATE SODIUM 100 MG CAP PO ONE (09:15)
[2017-03-19] MEDS ORDERED: POLYETHYLENE GLYCOL 17 GM PKG PO ONE (09:15)
[2017-03-19] MEDS: SODIUM CHLOR 0.9% 1000 ML INJ 1,000 ML IV SCH ×2 (09:15→17:42)
[2017-03-19] MEDS: traMADol HCL 50 MG TAB PO PRN ×2 (12:00→16:30)
[2017-03-19] MEDS ORDERED: METOPROLOL TARTRATE 25 MG TAB PO ONE (12:00)
--- NOTE | 2017-03-19 13:00 | EC ---
Study Study Date:03/18/2017 STUDY CONCLUSIONS SUMMARY - Left ventricle: The cavity size was normal. Wall thickness was normal. Systolic function was normal. The estimated ejection fraction was in the range of 55% to 60%. Wall motion was normal; there were no regional wall motion abnormalities. - Aortic valve: Valve area: 2.15cm^2 (Vmax). If LV function is below 40, please consider prescribing an ACEI or ARB or document rationale for non-use. PROCEDURE DATA STUDY STATUS: Elective. Procedure: Transthoracic echocardiography. Image quality was poor. Scanning was performed from the parasternal, apical, and subcostal acoustic windows. Study completion: The patient tolerated the procedure well. Transthoracic echocardiography. M-mode, complete 2D, complete spectral Doppler, and color Doppler. Height: Height: 67in. Weight: Weight: 263.5lb. Body mass index: BMI: 41.3kg/m^2. Body surface area: BSA: 2.28m^2. Patient status: Inpatient. CARDIAC ANATOMY LEFT VENTRICLE: The cavity size was normal. Wall thickness was normal. Systolic function was normal. The estimated ejection fraction was in the range of 55% to 60%. Wall motion was normal; there were no regional wall motion abnormalities. AORTIC VALVE: Trileaflet; normal thickness leaflets. Doppler: Transvalvular velocity was within the normal range. There was no stenosis. No regurgitation. Valve area: 2.15cm^2 (Vmax). Indexed valve area: 0.94cm^2/m^2 (Vmax). AORTA: Aortic root: The aortic root was normal in size. MITRAL VALVE: Structurally normal valve. Doppler: Transvalvular velocity was within the normal range. There was no evidence for stenosis. No regurgitation. Peak gradient: 4mm Hg (D). LEFT ATRIUM: The atrium was at the upper limits of normal in size. RIGHT VENTRICLE: The cavity size was normal. Wall thickness was normal. PULMONIC VALVE: Doppler: Transvalvular velocity was within the normal range. There was no evidence for stenosis. No regurgitation. TRICUSPID VALVE: Structurally normal valve. Doppler: Transvalvular velocity was within the normal range. No regurgitation. PULMONARY ARTERY: The main pulmonary artery was normal-sized. Systolic pressure was within the normal range. RIGHT ATRIUM: The atrium was normal in size. PERICARDIUM: There was no pericardial effusion. SYSTEMIC VEINS: Inferior vena cava: The vessel was normal in size. Patient weight: 263.5lb _Ejection fraction:_ 65-75% _Fractional shortening:_ 32% up to 5Kg 5-11.5Kg 11.6-22.9Kg 23-45Kg 45-57Kg Aortic Root 7-13 <17 13-22 17-27 17-27 LA diam 6-13 <23 24-38 33-47 37-40 RVID 10-17 7-15 7-15 7-18 8-17 LVIDd 12-22 <32 24-38 33-47 37-40 LVPW 2-4 3-6 5-7 6-8 7-8 IVS 2-4 3-6 5-7 6-8 7-8 BASIC MEASUREMENTS ADULT NORMAL Left ventricle LV internal dimension, ED, chordal 48.5 mm 43-52 level, PLAX LV internal dimension, ES, chordal 37.9 mm 23-38 level, PLAX Fractional shortening, chordal level, *22 % >29 PLAX LV posterior wall thickness, ED 10.9 mm IVS/LVPW ratio, ED 1 <1.3 Ventricular septum Septal thickness, ED 10.9 mm Aortic valve Leaflet separation 23 mm 15-26 BASIC MEASUREMENTS ADULT NORMAL Aortic valve Leaflet separation 23 mm 15-26 Aorta Root diameter, ED 28 mm 20-37 Left atrium Anterior-posterior dimension, ES 40 mm 19-40 Anterior-posterior dimension index, ES 1.75 cm/m^2 <2.2 LA/aortic root ratio 1.43 DOPPLER MEASUREMENTS ADULT NORMAL Main pulmonary artery Pressure, S 23 mm Hg =30 Aortic valve Peak velocity, S 138 cm/s Valve area, Vmax 2.15 cm^2 Valve area index, Vmax 0.94 cm^2/m^2 Mitral valve Peak E-wave velocity 97.7 cm/s Peak A-wave velocity 36.5 cm/s Deceleration time 218 ms 150-230 Peak gradient, D 4 mm Hg Peak E/A ratio 2.7 Tricuspid valve Regurgitant peak velocity 193 cm/s Peak RV-RA gradient, S 15 mm Hg Maximal regurgitant velocity 193 cm/s Systemic veins Estimated CVP 10 mm Hg Right ventricle RV pressure, S 25 mm Hg <30 Pulmonic valve Peak velocity, S 74.7 cm/s LEGEND: Mean values are shown as u=mean value. Asterisk (*) ricci values outside specified normal range. Prepared and signed by Ignacio Gray [id number]
[2017-03-19] MEDS: METOPROLOL TARTRATE 50 MG TAB PO SCH (20:51)
[2017-03-19] MEDS: DOCUSATE SODIUM 100 MG CAP PO SCH (20:51)
--- NOTE | 2017-03-19 21:16 | HHI.PR ---
Subjective Remarks wants to try more amulation today. still weak. Objective Vitals heart reg lung cta abd s/nt ext no edema Vital Signs Date Time Temp Pulse Resp B/P Pulse Ox O2 Delivery O2 Flow Rate FiO2 03/19/17 19:00 97.8 89 20 143/80 98 03/19/17 17:43 16 03/19/17 16:00 97.9 94 18 133/73 97 03/19/17 12:00 97.8 99 20 133/73 94 03/19/17 09:00 111 03/19/17 08:00 98 Nasal Cannula 2.00 03/19/17 07:47 99.1 110 20 169/91 96 03/19/17 04:00 98.2 100 20 144/84 97 03/19/17 00:00 98.8 91 20 134/81 97 03/18/17 03/18/17 03/19/17 15:00 23:00 07:00 Intake Total 480 ml 1284 ml 578 ml Output Total 500 ml Balance -20 ml 1284 ml 578 ml Intake Oral 480 ml IV Total 1284 ml 578 ml Output Urine Total 500 ml # Bowel Movements 0 Result Diagram: 03/19/17 0551 03/19/17 0521 Imaging Last Impressions Chest X-Ray 03/17/17 0709 Signed Impressions: Service Date/Time: Friday, March 17, 2017 07:15 - CONCLUSION: No acute disease. Ashish Giles MD Abdomen/Pelvis CT 03/17/17 0000 Signed Impressions: Service Date/Time: Friday, March 17, 2017 09:25 - CONCLUSION: 1. 14 cm cystic area within the scrotum on the left as described above. There is no significant inflammatory change and this may reflect sebaceous type cysts. 2. 12 cm pseudocyst versus hematoma versus less likely abscess involving the spleen. Again there is no significant surrounding inflammatory process. 3. Large nonincarcerated abdominal wall hernia. Ignacio Camrago MD A/P Problem List: (1) Dyspnea on exertion Status: Acute Plan: Pt with dm and afib increase falling at home..rhabdomyolysis sob. severe leukocytosis. unclear etiology. eval for pna rigors. eval for bacteremia general weakness. yeast infections groin/folds abnormal ct a/p discusses what appears to be chronic findings in spleen/scrotum and less likely infectious.. ..further w/up on ct findings as needed. blood cx's ngtd. wbc trending down. on emperic abx ivf and recheck ck..ck still rising cont abx initiated. echo. image chest. noted telemetry.rate control needs improvement. increase bb ssi dvt prophylaxis PT need snf. (2) Rhabdomyolysis Status: Acute Plan: see above (3) Afib Status: Chronic Plan: see above (4) Leukocytosis Status: Acute Plan: see above (5) Hyperlipidemia Status: Chronic (6) Hypothyroid Status: Chronic (7) HTN (hypertension) Status: Chronic Problem Qualifiers (1) Rhabdomyolysis: Qualified Code: M62.82 - Non-traumatic rhabdomyolysis (2) Leukocytosis: Qualified Code: D72.825 - Bandemia James Watkins MD March 19, 2017 21:16
[2017-03-20] VITALS (8 sets, daily range): BP systolic 100–149; BP diastolic 75–108; PULSE 81–122; RESP 17–22; TEMP 97.6–98.4; O2SAT 94–98
[2017-03-20] MEDS: SODIUM CHLOR 0.9% 1000 ML INJ 1,000 ML IV SCH ×2 (05:15→14:00)
[2017-03-20] MEDS: NYSTATIN 100,000 U/GM PWD 15 GM BTL TOPICAL SCH ×3 (06:00→21:11)
[2017-03-20] MEDS: INSULIN ASPART SUPPLEMENTAL SCALE SQ SCH ×4 (06:23→21:18)
[2017-03-20 08:07] LABS: AUTOMATED NEUTROPHIL # 11.7 TH/MM3 (1.8-7.7); BASOPHIL # 0.1 TH/MM3 (0-0.2); BASOPHIL % 0.9 % (0.0-2.0); EOSINOPHIL # 0.4 TH/MM3 (0-0.4); EOSINOPHIL % 2.3 % (0.0-4.0); HEMATOCRIT 38.5 % (39.0-51.0); HEMO FLAGS DIFF FINAL; LYMPH % 13.9 % (9.0-44.0); LYMPHOCYTE # 2.1 TH/MM3 (1.0-4.8); MEAN CELL VOLUME 82.9 FL (80.0-100.0); MEAN CORPUSCULAR HEMOGLOBIN 27.2 PG (27.0-34.0); MEAN CORPUSCULAR HGB CONC 32.8 % (32.0-36.0); MONO % 6.4 % (0.0-8.0); NEUT % 76.5 % (16.0-70.0); PLATELET COUNT 351 TH/MM3 (150-450); RED BLOOD COUNT 4.65 MIL/MM3 (4.50-5.90); RED CELL DISTRIBUTION WIDTH 14.3 % (11.6-17.2); WHITE BLOOD COUNT 15.2 TH/MM3 (4.0-11.0)
[2017-03-20 08:29] LABS: BICARBONATE 24.6 MEQ/L (21.0-32.0); POTASSIUM 4.1 MEQ/L (3.5-5.1)
[2017-03-20] MEDS: POLYETHYLENE GLYCOL 17 GM PKG PO SCH (09:00)
[2017-03-20] MEDS: DOCUSATE SODIUM 100 MG CAP PO SCH ×2 (09:00→21:11)
[2017-03-20] MEDS: METOPROLOL TARTRATE 50 MG TAB PO SCH ×2 (09:09→21:11)
[2017-03-20] MEDS: DILTIAZEM-CD 240 MG CAP ER PO SCH (09:10)
[2017-03-20] MEDS: DIGOXIN 0.125 MG TAB PO SCH (09:10)
[2017-03-20] MEDS: LOSARTAN 50 MG TAB PO SCH (09:10)
[2017-03-20] MEDS: LEVOTHYROXINE SODIUM 50 MCG TAB PO SCH (09:10)
--- NOTE | 2017-03-20 11:20 | HHI.PR ---
Subjective Remarks doing better. Objective Vitals heart irreg lung cta abd s/nt ext no edema Vital Signs Date Time Temp Pulse Resp B/P Pulse Ox O2 Delivery O2 Flow Rate FiO2 03/20/17 09:00 122 03/20/17 08:00 98.4 95 20 131/75 97 137/79 147/108 03/20/17 08:00 98 Nasal Cannula 2.00 03/20/17 04:00 97.6 90 19 139/76 98 03/20/17 00:00 98.2 81 17 130/79 98 03/19/17 20:15 Nasal Cannula 2.00 03/19/17 20:00 102 03/19/17 19:00 97.8 89 20 143/80 98 03/19/17 17:43 16 03/19/17 16:00 97.9 94 18 133/73 97 03/19/17 12:00 97.8 99 20 133/73 94 03/19/17 03/19/17 03/20/17 15:00 23:00 07:00 Intake Total 480 ml 1073 ml 1099 ml Output Total 600 ml 300 ml Balance -120 ml 773 ml 1099 ml Intake Oral 480 ml 200 ml 480 ml IV Total 873 ml 619 ml Output Urine Total 600 ml 300 ml # Voids 1 # Bowel Movements 1 0 0 Result Diagram: 03/20/17 0553 03/20/17 0553 Imaging Last Impressions Chest X-Ray 03/17/17 0709 Signed Impressions: Service Date/Time: Friday, March 17, 2017 07:15 - CONCLUSION: No acute disease. Ashish Giles MD Abdomen/Pelvis CT 03/17/17 0000 Signed Impressions: Service Date/Time: Friday, March 17, 2017 09:25 - CONCLUSION: 1. 14 cm cystic area within the scrotum on the left as described above. There is no significant inflammatory change and this may reflect sebaceous type cysts. 2. 12 cm pseudocyst versus hematoma versus less likely abscess involving the spleen. Again there is no significant surrounding inflammatory process. 3. Large nonincarcerated abdominal wall hernia. Ignacio Camargo MD A/P Problem List: (1) Dyspnea on exertion Status: Acute Plan: Pt with dm and afib increase falling at home..rhabdomyolysis sob. severe leukocytosis. unclear etiology. eval for pna rigors. eval for bacteremia general weakness. yeast infections groin/folds afib/rvr abnormal ct a/p discusses what appears to be chronic findings in spleen/scrotum and less likely infectious.. ..further w/up on ct findings as needed. blood cx's ngtd. wbc trending down. on emperic abx ivf and recheck ck..ck lower cont abx initiated. echo. image chest. noted telemetry.rate control needs improvement. increased bb ..monitor ssi dvt prophylaxis PT need snf. (2) Rhabdomyolysis Status: Acute Plan: see above (3) Afib Status: Chronic Plan: see above (4) Leukocytosis Status: Acute Plan: see above (5) Hyperlipidemia Status: Chronic (6) Hypothyroid Status: Chronic (7) HTN (hypertension) Status: Chronic Problem Qualifiers (1) Rhabdomyolysis: Qualified Code: M62.82 - Non-traumatic rhabdomyolysis (2) Leukocytosis: Qualified Code: D72.825 - Bandemia James Watkins MD March 20, 2017 11:20
[2017-03-20 11:30] LABS: CKMB 2.1 NG/ML (0.5-3.6)
[2017-03-20] MEDS: ONDANSETRON HCL 4 MG/2 ML VIAL IV PUSH PRN (17:28)
[2017-03-21] VITALS (8 sets, daily range): BP systolic 127–163; BP diastolic 71–99; PULSE 86–124; RESP 20–24; TEMP 97–98.7; O2SAT 95–97
[2017-03-21] MEDS: traMADol HCL 50 MG TAB PO PRN ×2 (00:32→23:06)
[2017-03-21] MEDS: NYSTATIN 100,000 U/GM PWD 15 GM BTL TOPICAL SCH ×3 (06:00→20:37)
[2017-03-21] MEDS: INSULIN ASPART SUPPLEMENTAL SCALE SQ SCH ×4 (06:09→20:37)
[2017-03-21 07:20] LABS: AUTOMATED NEUTROPHIL # 13.7 TH/MM3 (1.8-7.7); BASOPHIL # 0.1 TH/MM3 (0-0.2); BASOPHIL % 0.6 % (0.0-2.0); EOSINOPHIL # 0.3 TH/MM3 (0-0.4); EOSINOPHIL % 1.9 % (0.0-4.0); HEMATOCRIT 40.4 % (39.0-51.0); HEMO FLAGS DIFF FINAL; LYMPH % 13.6 % (9.0-44.0); LYMPHOCYTE # 2.4 TH/MM3 (1.0-4.8); MEAN CELL VOLUME 83.2 FL (80.0-100.0); MEAN CORPUSCULAR HEMOGLOBIN 26.7 PG (27.0-34.0); MEAN CORPUSCULAR HGB CONC 32.1 % (32.0-36.0); NEUT % 76.9 % (16.0-70.0); PLATELET COUNT 319 TH/MM3 (150-450); RED BLOOD COUNT 4.86 MIL/MM3 (4.50-5.90); RED CELL DISTRIBUTION WIDTH 13.7 % (11.6-17.2); WHITE BLOOD COUNT 17.9 TH/MM3 (4.0-11.0)
[2017-03-21 07:40] LABS: BICARBONATE 23.7 MEQ/L (21.0-32.0); POTASSIUM 4.2 MEQ/L (3.5-5.1)
[2017-03-21 08:36] LABS: CKMB 2.2 NG/ML (0.5-3.6)
[2017-03-21] MEDS: POLYETHYLENE GLYCOL 17 GM PKG PO SCH (09:53)
[2017-03-21] MEDS: DOCUSATE SODIUM 100 MG CAP PO SCH ×2 (09:53→20:32)
[2017-03-21] MEDS: METOPROLOL TARTRATE 50 MG TAB PO SCH ×2 (09:53→20:32)
[2017-03-21] MEDS: DILTIAZEM-CD 240 MG CAP ER PO SCH (09:53)
[2017-03-21] MEDS: DIGOXIN 0.125 MG TAB PO SCH (09:54)
[2017-03-21] MEDS: LEVOTHYROXINE SODIUM 50 MCG TAB PO SCH (09:54)
[2017-03-21] MEDS: LOSARTAN 50 MG TAB PO SCH (09:54)
[2017-03-21] MEDS ORDERED: PILL SPLITTER OTHER PRN (12:15)
--- NOTE | 2017-03-21 14:23 | HHI.PR ---
Subjective Remarks feels overall better. Objective Vitals heart irreg lung cta abd snt ext no edema Vital Signs Date Time Temp Pulse Resp B/P Pulse Ox O2 Delivery O2 Flow Rate FiO2 03/21/17 12:00 97.7 117 22 132/89 97 03/21/17 10:07 124 03/21/17 10:07 2.00 03/21/17 08:00 140/96 03/21/17 08:00 163/95 03/21/17 08:00 97.0 113 24 141/99 97 03/21/17 04:25 98.7 88 22 142/78 96 03/21/17 00:36 98.2 86 22 138/89 95 03/20/17 22:29 98.4 103 22 145/82 96 100/88 03/20/17 19:30 Nasal Cannula 2.00 03/20/17 19:30 99 03/20/17 16:00 98.1 91 18 149/83 95 03/20/17 03/20/17 03/21/17 15:00 23:00 07:00 Intake Total 600 ml 420 ml 360 ml Output Total 500 ml 800 ml 1100 ml Balance 100 ml -380 ml -740 ml Intake Oral 600 ml 420 ml 360 ml Output Urine Total 500 ml 800 ml 1100 ml # Bowel Movements 1 0 Result Diagram: 03/21/17 0650 03/21/17 0650 Imaging Last Impressions Chest X-Ray 03/17/17 0709 Signed Impressions: Service Date/Time: Friday, March 17, 2017 07:15 - CONCLUSION: No acute disease. Ashish Giles MD Abdomen/Pelvis CT 03/17/17 0000 Signed Impressions: Service Date/Time: Friday, March 17, 2017 09:25 - CONCLUSION: 1. 14 cm cystic area within the scrotum on the left as described above. There is no significant inflammatory change and this may reflect sebaceous type cysts. 2. 12 cm pseudocyst versus hematoma versus less likely abscess involving the spleen. Again there is no significant surrounding inflammatory process. 3. Large nonincarcerated abdominal wall hernia. Ignacio Camargo MD A/P Problem List: (1) Dyspnea on exertion Status: Acute Plan: Pt with dm and afib increase falling at home..rhabdomyolysis sob. severe leukocytosis. unclear etiology. eval for pna rigors. eval for bacteremia general weakness. yeast infections groin/folds afib/rvr abnormal ct a/p discusses what appears to be chronic findings in spleen/scrotum and less likely infectious.. ..further w/up on ct findings as needed. blood cx's ngtd. wbc trending down. on emperic abx stop ivf. ck lower cont abx initiated. echo. image chest. noted telemetry.rate control needs improvement. increased bb again ..monitor ssi dvt prophylaxis PT need snf. (2) Rhabdomyolysis Status: Acute Plan: see above (3) Afib Status: Chronic Plan: see above (4) Leukocytosis Status: Acute Plan: see above (5) Hyperlipidemia Status: Chronic (6) Hypothyroid Status: Chronic (7) HTN (hypertension) Status: Chronic Problem Qualifiers (1) Rhabdomyolysis: Qualified Code: M62.82 - Non-traumatic rhabdomyolysis (2) Leukocytosis: Qualified Code: D72.825 - Bandemia James Watkins MD March 21, 2017 14:23
[2017-03-22] VITALS (8 sets, daily range): BP systolic 98–157; BP diastolic 58–83; PULSE 80–134; RESP 18–22; TEMP 97.9–98.9; O2SAT 92–96
[2017-03-22] MEDS: INSULIN ASPART SUPPLEMENTAL SCALE SQ SCH ×4 (05:47→22:06)
[2017-03-22] MEDS: NYSTATIN 100,000 U/GM PWD 15 GM BTL TOPICAL SCH ×3 (05:49→22:07)
[2017-03-22] MEDS: traMADol HCL 50 MG TAB PO PRN ×2 (06:33→21:48)
[2017-03-22 07:37] LABS: AUTOMATED NEUTROPHIL # 10.9 TH/MM3 (1.8-7.7); BASOPHIL # 0.1 TH/MM3 (0-0.2); BASOPHIL % 0.9 % (0.0-2.0); EOSINOPHIL # 0.3 TH/MM3 (0-0.4); EOSINOPHIL % 2.2 % (0.0-4.0); HEMATOCRIT 40.3 % (39.0-51.0); HEMO FLAGS DIFF FINAL; LYMPH % 17.7 % (9.0-44.0); LYMPHOCYTE # 2.7 TH/MM3 (1.0-4.8); MEAN CELL VOLUME 82.1 FL (80.0-100.0); MEAN CORPUSCULAR HEMOGLOBIN 26.4 PG (27.0-34.0); MEAN CORPUSCULAR HGB CONC 32.2 % (32.0-36.0); MONO % 7.7 % (0.0-8.0); NEUT % 71.5 % (16.0-70.0); PLATELET COUNT 331 TH/MM3 (150-450); RED BLOOD COUNT 4.91 MIL/MM3 (4.50-5.90); RED CELL DISTRIBUTION WIDTH 14.1 % (11.6-17.2); WHITE BLOOD COUNT 15.2 TH/MM3 (4.0-11.0)
[2017-03-22] MEDS: POLYETHYLENE GLYCOL 17 GM PKG PO SCH (08:40)
[2017-03-22] MEDS: LOSARTAN 50 MG TAB PO SCH (08:40)
[2017-03-22] MEDS: DILTIAZEM-CD 240 MG CAP ER PO SCH (08:40)
[2017-03-22] MEDS: DIGOXIN 0.125 MG TAB PO SCH (08:40)
[2017-03-22] MEDS: DOCUSATE SODIUM 100 MG CAP PO SCH ×2 (08:40→21:40)
[2017-03-22] MEDS: LEVOTHYROXINE SODIUM 50 MCG TAB PO SCH (08:40)
[2017-03-22] MEDS: METOPROLOL TARTRATE 50 MG TAB PO SCH ×2 (08:40→21:40)
[2017-03-22] MEDS: ASPIRIN 325 MG TAB PO SCH (08:40)
--- NOTE | 2017-03-22 13:15 | HHI.PR ---
Subjective Remarks overall feeling better. Objective Vitals sittting up heart irreg lung cta abd s/nt ext no edema Vital Signs Date Time Temp Pulse Resp B/P Pulse Ox O2 Delivery O2 Flow Rate FiO2 03/22/17 09:58 Nasal Cannula 2.00 03/22/17 08:00 98.4 104 20 129/77 92 03/22/17 08:00 146/66 03/22/17 08:00 128/82 03/22/17 04:00 98.9 96 18 128/69 94 03/22/17 00:56 98.0 95 18 157/83 94 03/21/17 20:30 98.2 107 20 132/81 97 03/21/17 20:30 Nasal Cannula 2.00 03/21/17 19:54 98 03/21/17 16:00 98.1 97 22 127/71 97 03/21/17 03/21/17 03/22/17 14:59 22:59 06:59 Intake Total 480 ml Output Total 500 ml 400 ml 550 ml Balance -20 ml -400 ml -550 ml Intake Oral 480 ml Output Urine Total 500 ml 400 ml 550 ml # Bowel Movements 0 Result Diagram: 03/22/17 0605 03/21/17 0650 Imaging Last Impressions Chest X-Ray 03/17/17 0709 Signed Impressions: Service Date/Time: Friday, March 17, 2017 07:15 - CONCLUSION: No acute disease. Ashish Giles MD Abdomen/Pelvis CT 03/17/17 0000 Signed Impressions: Service Date/Time: Friday, March 17, 2017 09:25 - CONCLUSION: 1. 14 cm cystic area within the scrotum on the left as described above. There is no significant inflammatory change and this may reflect sebaceous type cysts. 2. 12 cm pseudocyst versus hematoma versus less likely abscess involving the spleen. Again there is no significant surrounding inflammatory process. 3. Large nonincarcerated abdominal wall hernia. Ignacio Camargo MD A/P Problem List: (1) Dyspnea on exertion Status: Acute Plan: Pt with dm and afib increase falling at home..rhabdomyolysis sob. possible relation to afib/rvr severe leukocytosis. unclear etiology. no fever. could be related to falls and rhabdo. trending wbc down. rigors. resolved. no fever. blood cx ngtd general weakness. yeast infections groin/folds afib/rvr abnormal ct a/p discusses what appears to be chronic findings in spleen/scrotum and less likely infectious.. ..further w/up on ct findings as needed. blood cx's ngtd. wbc trending down. on emperic abx stopped ivf. ck lower cont abx initiated convert to po and finish course echo. image chest. noted monitor tele for rate control. on dig/cardizem/metoprolol.asa ssi dvt prophylaxis PT Long talk with pt and his nephew on phone. they would like a snf in the [facility]. would plan for d/c tomorrow unless not rate controlled. (2) Rhabdomyolysis Status: Acute Plan: see above (3) Afib Status: Acute Plan: see above (4) Leukocytosis Status: Acute Plan: see above (5) Hyperlipidemia Status: Chronic (6) Hypothyroid Status: Chronic (7) HTN (hypertension) Status: Chronic Problem Qualifiers (1) Rhabdomyolysis: Qualified Code: M62.82 - Non-traumatic rhabdomyolysis (2) Leukocytosis: Qualified Code: D72.825 - Bandemia James Watkins MD March 22, 2017 13:15
[2017-03-22] MEDS: metFORMIN HCL 500 MG TAB PO SCH (18:11)
[2017-03-23] VITALS: BP 127/74; PULSE 86; RESP 18; TEMP 98.3; O2SAT 93
[2017-03-23] MEDS: NYSTATIN 100,000 U/GM PWD 15 GM BTL TOPICAL SCH ×3 (06:15→21:22)
[2017-03-23] MEDS: INSULIN ASPART SUPPLEMENTAL SCALE SQ SCH ×4 (06:20→21:20)
[2017-03-23 08:00] VITALS: BP 125/71; PULSE 101; PULSE 119; PULSE 81; RESP 20; TEMP 98.6; O2SAT 93
[2017-03-23] MEDS: DOCUSATE SODIUM 100 MG CAP PO SCH ×2 (08:12→21:15)
[2017-03-23] MEDS: POLYETHYLENE GLYCOL 17 GM PKG PO SCH (08:12)
[2017-03-23] MEDS: DIGOXIN 0.125 MG TAB PO SCH (08:12)
[2017-03-23 08:13] LABS: ANION GAP 8 MEQ/L (5-15); BICARBONATE 22.8 MEQ/L (21.0-32.0); BLOOD UREA NITROGEN 14 MG/DL (7-18); CHLORIDE 97 MEQ/L (98-107); GLOMERULAR FILTRATION RATE 91 ML/MIN (>89); SODIUM (NA) 128 MEQ/L (136-145)
[2017-03-23] MEDS: LEVOTHYROXINE SODIUM 50 MCG TAB PO SCH (08:13)
[2017-03-23] MEDS: ASPIRIN 325 MG TAB PO SCH (08:13)
[2017-03-23] MEDS: METOPROLOL TARTRATE 50 MG TAB PO SCH ×2 (08:13→21:16)
[2017-03-23] MEDS: metFORMIN HCL 500 MG TAB PO SCH ×2 (08:13→18:00)
[2017-03-23] MEDS: DILTIAZEM-CD 240 MG CAP ER PO SCH (08:13)
[2017-03-23] MEDS: LOSARTAN 50 MG TAB PO SCH (08:13)
[2017-03-23 08:14] LABS: POTASSIUM 5.6 MEQ/L (3.5-5.1)
[2017-03-23] MEDS: traMADol HCL 50 MG TAB PO PRN ×2 (08:14→21:16)
[2017-03-23 08:21] LABS: AUTOMATED NEUTROPHIL # 11.6 TH/MM3 (1.8-7.7); BASOPHIL # 0.1 TH/MM3 (0-0.2); BASOPHIL % 0.9 % (0.0-2.0); EOSINOPHIL # 0.3 TH/MM3 (0-0.4); HEMO FLAGS DIFF FINAL; LYMPH % 13.6 % (9.0-44.0); LYMPHOCYTE # 2.1 TH/MM3 (1.0-4.8); MEAN CELL VOLUME 83.5 FL (80.0-100.0); MEAN CORPUSCULAR HEMOGLOBIN 26.4 PG (27.0-34.0); MEAN CORPUSCULAR HGB CONC 31.7 % (32.0-36.0); MONO % 8.4 % (0.0-8.0); NEUT % 75.1 % (16.0-70.0); PLATELET COUNT 347 TH/MM3 (150-450); RED BLOOD COUNT 5.03 MIL/MM3 (4.50-5.90); RED CELL DISTRIBUTION WIDTH 13.8 % (11.6-17.2); WHITE BLOOD COUNT 15.4 TH/MM3 (4.0-11.0)
[2017-03-23 12:00] VITALS: BP 117/68; PULSE 86; RESP 20; TEMP 98.4; O2SAT 95
[2017-03-23 16:00] VITALS: BP 117/63; PULSE 69; RESP 20; TEMP 97.5; O2SAT 95
--- NOTE | 2017-03-23 16:40 | HHI.PR ---
Subjective Remarks No new complaints. Objective Vitals Vital Signs Date Time Temp Pulse Resp B/P Pulse Ox O2 Delivery O2 Flow Rate FiO2 03/23/17 12:00 98.4 86 20 117/68 95 03/23/17 08:00 98.6 101 20 125/71 93 03/23/17 08:00 93 Room Air 03/23/17 00:00 98.3 86 18 127/74 93 03/22/17 21:45 Nasal Cannula 2.00 03/22/17 20:00 98.0 107 20 145/73 93 03/22/17 19:47 107 03/22/17 03/22/17 03/23/17 15:00 23:00 07:00 Intake Total 480 ml Output Total 600 ml 700 ml Balance -120 ml -700 ml Intake Oral 480 ml Output Urine Total 600 ml 700 ml Result Diagram: 03/23/17 0600 03/23/17 0600 Imaging Last Impressions Chest X-Ray 03/17/17 0709 Signed Impressions: Service Date/Time: Friday, March 17, 2017 07:15 - CONCLUSION: No acute disease. Ashish Giles MD Abdomen/Pelvis CT 03/17/17 0000 Signed Impressions: Service Date/Time: Friday, March 17, 2017 09:25 - CONCLUSION: 1. 14 cm cystic area within the scrotum on the left as described above. There is no significant inflammatory change and this may reflect sebaceous type cysts. 2. 12 cm pseudocyst versus hematoma versus less likely abscess involving the spleen. Again there is no significant surrounding inflammatory process. 3. Large nonincarcerated abdominal wall hernia. Ignacio Camargo MD Objective Remarks GENERAL: This is a well-nourished, well-developed patient, in no apparent distress. CARDIOVASCULAR: Regular rate and rhythm without murmurs, gallops, or rubs. RESPIRATORY: Clear to auscultation. Breath sounds equal bilaterally. No wheezes , rales, or rhonchi. GASTROINTESTINAL: Abdomen soft, non-tender, nondistended. Normal active bowel sounds MUSCULOSKELETAL: Extremities without clubbing, cyanosis, or edema. NEURO: Alert & Oriented x4 to person, place, time, situation. Moves all ext x4 A/P Problem List: (1) Dyspnea on exertion Status: Acute Plan: Pt with dm and afib increase falling at home..rhabdomyolysis sob. possible relation to afib/rvr severe leukocytosis. unclear etiology. no fever. could be related to falls and rhabdo. trending wbc down. rigors. resolved. no fever. blood cx ngtd general weakness. yeast infections groin/folds afib/rvr abnormal ct a/p discusses what appears to be chronic findings in spleen/scrotum and less likely infectious.. ..further w/up on ct findings as needed. blood cx's ngtd. wbc trending down. on emperic abx stopped ivf. ck lower cont abx initiated convert to po and finish course echo. image chest. noted monitor tele for rate control. on dig/cardizem/metoprolol.asa ssi dvt prophylaxis PT Long talk with pt and his nephew on phone. they would like a snf in the [facility]. would plan for d/c tomorrow unless not rate controlled. 03/23/17 - HR improving - repeat K level - repeat CK level in AM - repeat CBC in AM & review WBC - NO fever, no cough, no dysuria - anticipate d/c to SNF in next 1 - 2 days (2) Rhabdomyolysis Status: Acute Plan: see above (3) Afib Status: Acute Plan: see above (4) Leukocytosis Status: Acute Plan: see above (5) Hyperlipidemia Status: Chronic (6) Hypothyroid Status: Chronic (7) HTN (hypertension) Status: Chronic Problem Qualifiers (1) Rhabdomyolysis: Qualified Code: M62.82 - Non-traumatic rhabdomyolysis (2) Leukocytosis: Qualified Code: D72.825 - Bandemia Brando Tijerina DO March 23, 2017 16:39
[2017-03-23 19:23] LABS: HEMOGLOBIN A1a 2.2 %; HEMOGLOBIN LA1C 2.2 %; HEMOGLOBIN P3 4.4 %
[2017-03-23 19:24] LABS: HEMOGLOBIN Ao 76.5 %
[2017-03-23 20:00] VITALS: BP 129/62; PULSE 87; RESP 16; TEMP 98.2; O2SAT 95
[2017-03-23 20:59] VITALS: PULSE 96
[2017-03-24] VITALS: BP 124/60; PULSE 70; RESP 18; TEMP 98.1; O2SAT 4
[2017-03-24 04:00] VITALS: BP 137/87; PULSE 107; RESP 18; TEMP 98.8; O2SAT 95
[2017-03-24] MEDS: NYSTATIN 100,000 U/GM PWD 15 GM BTL TOPICAL SCH ×2 (05:59→14:00)
[2017-03-24] MEDS: INSULIN ASPART SUPPLEMENTAL SCALE SQ SCH ×2 (05:59→11:00)
[2017-03-24 08:00] VITALS: BP_SYST 132; BP_SYST 134; BP_DIAS 75; BP_DIAS 87; PULSE 83; RESP 18; TEMP 98.2; O2SAT 93
[2017-03-24] MEDS: DILTIAZEM-CD 240 MG CAP ER PO SCH (08:05)
[2017-03-24] MEDS: DIGOXIN 0.125 MG TAB PO SCH (08:05)
[2017-03-24] MEDS: ASPIRIN 325 MG TAB PO SCH (08:05)
[2017-03-24] MEDS: METOPROLOL TARTRATE 50 MG TAB PO SCH (08:05)
[2017-03-24] MEDS: LEVOTHYROXINE SODIUM 50 MCG TAB PO SCH (08:05)
[2017-03-24] MEDS: metFORMIN HCL 500 MG TAB PO SCH (08:05)
[2017-03-24] MEDS: LOSARTAN 50 MG TAB PO SCH (08:06)
[2017-03-24] MEDS: DOCUSATE SODIUM 100 MG CAP PO SCH (08:06)
[2017-03-24] MEDS: traMADol HCL 50 MG TAB PO PRN (08:07)
[2017-03-24] MEDS: POLYETHYLENE GLYCOL 17 GM PKG PO SCH (08:07)
[2017-03-24 08:33] LABS: BASOPHIL # 0.2 TH/MM3 (0-0.2); BASOPHIL % 1.1 % (0.0-2.0); EOSINOPHIL # 0.2 TH/MM3 (0-0.4); EOSINOPHIL % 1.1 % (0.0-4.0); HEMATOCRIT 40.6 % (39.0-51.0); HEMO FLAGS DIFF FINAL; LYMPH % 11.2 % (9.0-44.0); MEAN CELL VOLUME 82.2 FL (80.0-100.0); MEAN CORPUSCULAR HEMOGLOBIN 27.4 PG (27.0-34.0); MEAN CORPUSCULAR HGB CONC 33.4 % (32.0-36.0); MONO % 8.9 % (0.0-8.0); NEUT % 77.7 % (16.0-70.0); PLATELET COUNT 441 TH/MM3 (150-450); RED BLOOD COUNT 4.94 MIL/MM3 (4.50-5.90); WHITE BLOOD COUNT 17.9 TH/MM3 (4.0-11.0)
[2017-03-24] MEDS: ONDANSETRON HCL 4 MG/2 ML VIAL IV PUSH PRN (08:51)
[2017-03-24 09:00] VITALS: PULSE 114
[2017-03-24 09:11] LABS: BICARBONATE 24.4 MEQ/L (21.0-32.0); MAGNESIUM 2.2 MG/DL (1.5-2.5); POTASSIUM 4.7 MEQ/L (3.5-5.1)
[2017-03-24 12:00] VITALS: BP 110/60; PULSE 98; RESP 18; TEMP 98.2; O2SAT 93
[2017-03-24] MEDS ORDERED: METO25TA3 PO (12:28)
[2017-03-24] MEDS ORDERED: METF500T PO (12:28)
--- NOTE | 2017-03-24 12:30 | HHI.DCPOC ---
Discharge Care Plan Diagnosis: (1) Rhabdomyolysis (2) Dyspnea on exertion (3) Hyperlipidemia (4) HTN (hypertension) (5) Hypothyroid (6) Afib (7) Leukocytosis Goals to Promote Your Health * To prevent worsening of your condition and complications * To maintain your health at the optimal level Directions to Meet Your Goals Take your medications as prescribed Follow your dietary instruction Follow activity as directed Keep your appointments as scheduled Take your immunizations and boosters as scheduled If your symptoms worsen call your PCP, if no PCP go to Urgent Care Center or Emergency Room Smoking is Dangerous to Your Health. Avoid second hand smoke Call the 24-hour hour crisis hotline for domestic abuse at Nayla Rodriguez March 24, 2017 12:30 Brando Tijerina DO March 27, 2017 22:46
--- NOTE | 2017-03-24 12:49 | HHI.DS ---
Discharge Summary Admission Date March 17, 2017 at 09:05 Discharge Date: March 24, 2017 Admitting Diagnosis rhabdomyolysis, leukocytosis with bandemia, dyspnea on exertion (1) Dyspnea on exertion Diagnosis: Principal (2) Rhabdomyolysis Diagnosis: Principal (3) Afib Diagnosis: Secondary (4) Leukocytosis Diagnosis: Secondary (5) Hyperlipidemia Diagnosis: Secondary (6) Hypothyroid Diagnosis: Secondary (7) HTN (hypertension) Diagnosis: Secondary Brief History Pt is 71 yo with dm, afib who had been progressively more sob. says about 2 weeks ago he fell off bed after returning from bathroom. He describes alot of nocturia and bph problems. He later fell again. At once point was on floor for 5 hours. Described 2 episodes of shaking chills with teeth chattering. no n/v/d. CBC/BMP: 03/24/17 0639 03/24/17 0639 Significant Findings Laboratory Tests Test 03/22/17 03/23/17 03/24/17 06:05 06:00 06:39 White Blood Count 15.2 TH/MM3 15.4 TH/MM3 17.9 TH/MM3 (4.0-11.0) (4.0-11.0) (4.0-11.0) Mean Corpuscular Hemoglobin 26.4 PG 26.4 PG (27.0-34.0) (27.0-34.0) Neutrophils (%) (Auto) 71.5 % 75.1 % 77.7 % (16.0-70.0) (16.0-70.0) (16.0-70.0) Neutrophils # (Auto) 10.9 TH/MM3 11.6 TH/MM3 14.0 TH/MM3 (1.8-7.7) (1.8-7.7) (1.8-7.7) Monocytes # (Auto) 1.2 TH/MM3 1.3 TH/MM3 1.6 TH/MM3 (0-0.9) (0-0.9) (0-0.9) Mean Corpuscular Hemoglobin 31.7 % Concent (32.0-36.0) Monocytes (%) (Auto) 8.4 % (0.0-8.0) 8.9 % (0.0-8.0) Sodium Level 128 MEQ/L 130 MEQ/L (136-145) (136-145) Potassium Level 5.6 MEQ/L (3.5-5.1) Chloride Level 97 MEQ/L 96 MEQ/L (98-107) (98-107) Random Glucose 126 MG/DL 135 MG/DL (74-106) (74-106) Hemoglobin A1c 11.5 % (4.3-6.0) Calcium Level 8.3 MG/DL (8.5-10.1) Estimat Glomerular Filtration 86 ML/MIN (>89) Rate Imaging Last Impressions Chest CT 03/18/17 0000 Signed Impressions: Service Date/Time: Saturday, March 18, 2017 08:59 - CONCLUSION: 1. Small left effusion Ignacio Camargo MD Chest X-Ray 03/17/17 0709 Signed Impressions: Service Date/Time: Friday, March 17, 2017 07:15 - CONCLUSION: No acute disease. Ashish Giles MD Abdomen/Pelvis CT 03/17/17 0000 Signed Impressions: Service Date/Time: Friday, March 17, 2017 09:25 - CONCLUSION: 1. 14 cm cystic area within the scrotum on the left as described above. There is no significant inflammatory change and this may reflect sebaceous type cysts. 2. 12 cm pseudocyst versus hematoma versus less likely abscess involving the spleen. Again there is no significant surrounding inflammatory process. 3. Large nonincarcerated abdominal wall hernia. Ignacio Camargo MD Hospital Course Pt is a 71 y/o with DM and A. fib who has had increased number of falls at home recently and was admitted with complaints of SOB. Pt was found to be in rhabdomyolysis with a noted leukocytosis with bandemia. He was also noted be in A. fib RVR with HR in the 120-130's. It was felt that his SOB may have been related to the A. fib RVR. Pts A. fib RVR improved with titrating up on the pts Metoprolol to 75mg po BID. He was continued on his home dose of Cardizem and Digoxin as well as ASA. His rhabdomyolysis improved with IVF and CK levels normalized prior to discharge. Pts blood sugars were trending high during this admission which improved with increasing his Metformin to 500mg BIDPC dosing. This will be continued as an outpt. The etiology of the severe leukocytosis is unclear. He had a CT Abd/pelvis at admission which noted a 14 cm cystic area within the scrotum on the left with no significant inflammatory change and this may reflect sebaceous type cysts, 12 cm pseudocyst versus hematoma versus less likely abscess involving the spleen but again there is no significant surrounding inflammatory process, and a large non-incarcerated abdominal wall hernia. These finding were felt to be chronic issues and less likely infectious. Pt was given a dose of IV antibiotics in the ED. He remained afebrile throughout this admission. It was thought that the leukocytosis could be related to falls and rhabdo and was trending down from admission. Blood cultures drawn in the ED with NGTD. He was noted to have yeast infections in the groin/folds which was treated with Nystatin powder and is improving. Peripheral smear was ordered prior to the pts discharge which will need to be followed up on. Pt will need a repeat CBC in 1 week. He will followup with his PCP, Dr. Jj Doll, 1 week after discharge from SNF. Pt Condition on Discharge: Stable Discharge Disposition: Discharge to SNF Discharge Instructions DIET: Follow Instructions for: Diabetic Diet Activities you can perform: Regular-No Restrictions Follow up Referrals: PCP Follow-up - [address] Jj Doll Followup 1 week after dicahrge from rehab, call for an appt. SNF/[facility]/ with [facility] New Medications: Nystatin Topical (Nystop Topical) 100,000 Unit/Gm Powd 1 APPLIC TOPICAL Q8HR yeast infection in groin #1 BOTTLE Changed Medications: Metformin (Metformin) 500 Mg Tab 500 MG PO BIDPC With a meal Blood Sugar Management #62 Ref 0 TAB (Changed from: DAILY; 30) Metoprolol Tartrate (Metoprolol Tartrate) 25 Mg Tab 75 MG PO BID htn #60 Ref 0 TAB (Changed from: 25 MG) Continued Medications: Atorvastatin (Atorvastatin) 10 Mg Tab 10 MG PO HS Cholesterol Management #30 Ref 0 TAB Digoxin (Digoxin) 0.25 Mg Tab 125 MCG PO DAILY per dr bell instruction only to take 125 mcg per day Regulate Heart Beat #30 Ref 0 TAB Diltiazem ER 24 HR (Cartia Xt) 240 Mg Caper 240 MG PO DAILY #30 Ref 0 CAP Levothyroxine (Levothyroxine) 50 Mcg Tab 50 MCG PO DAILY Thyroid #30 Ref 0 TAB Losartan (Losartan) 50 Mg Tab 50 MG PO DAILY Blood Pressure Management #30 Ref 0 TAB Additional Information Patient examined. Assessment and plan formulated with Nayla Rodriguez PA-C. I agree with the above. Nayla Rodriguez March 24, 2017 12:49 Brando Tijerina DO March 27, 2017 22:46
[2017-03-24] MEDS ORDERED: NYST10007 TOPICAL (12:51)
== END 2017-03-24 17:25 | DRG 558 ==
LOC: NEPE 06:49 → NEDA 09:05 → N04A 13:22
PROVIDERS: ADMIT Hospitalist; ATTEND Hospitalist
DX: M62.82 Rhabdomyolysis (principal); I48.91 Unspecified atrial fibrillation; E11.9 Type 2 diabetes mellitus without complications; I10 Essential (primary) hypertension; E03.9 Hypothyroidism, unspecified; E78.5 Hyperlipidemia, unspecified; K43.9 Ventral hernia without obstruction or gangrene; M19.90 Unspecified osteoarthritis, unspecified site; N40.0 Benign prostatic hyperplasia without lower urinary tract symptoms; Z87.891 Personal history of nicotine dependence; Z96.652 Presence of left artificial knee joint
CPT/HCPCS: 71010; 71250; 74177; 80048; 80053; 80162; 81001; 82550; 82552; 82948; 83036; 83605; 83735; 83880; 84132; 84484; 85007; 85025; 85027; 85060; 85610; 85730; 87040; 90732; 93005; 93306; J0456; J0696; J1815; J2405; J7030; J7040; J7050; Q9967

== ENCOUNTER 2017-06-11 11:11 | Emergency (ER) | payer MEDICARE ==
[2017-06-11] VITALS (7 sets, daily range): BP systolic 110–191; BP diastolic 65–128; PULSE 110–156; RESP 18; TEMP 98.2; O2SAT 98–100
[~2017-06-11] VITALS: Ht 172.7 cm; Wt 126.0 kg
[~2017-06-11 11:11] MED LIST changes: -ATOR10 PO; +ATOR10TA15 PO; -CARD240C6 PO; +CART240C PO; +DIGO0.25 PO; -DIGO0.253 PO; +LOSA50TA PO; +METF500T PO; +METO25TA3 PO; -NORC7.5T PO; +NYST10007 TOPICAL; -RIVA10 PO; -TAB-TAB PO
[2017-06-11] MEDS ORDERED: SODIUM CHLOR 0.9% 1000 ML INJ 1,000 ML IV SCH ×4 (11:33→13:39)
[2017-06-11] MEDS ORDERED: PIPERACIL-TAZO 4.5 GM PREMIX 100 ML IV STA (11:37)
--- NOTE | 2017-06-11 11:41 | PD ---
HPI Chief Complaint: Skin Problem Time Seen by Provider: 11:34 Travel History International Travel<30 days: No Contact w/Intl Traveler<30days: No Traveled to known affect area: No History of Present Illness HPI 72- year old male brought to the ED by [facility] complaining of bilateral knee infection after amputation. Per Nurse the patient had bilateral amputation done in May 2017. Patient is unable to remember which hospital or surgeon completed the amputation. Per Nurse, the patient went to his occupational therapy appointment this morning, who then called [facility] due to the infection. Patient reports that his pain is currently a 6/10. He reports his current medical conditions are HTN and HLD. He states he last received medications this morning , but is unsure which medications. Some of the history was obtained from calling the intermediate. Patient apparently was seen at Dr. Plascencia office who actually performed amputations examined the office today and told to go to [facility] to get admitted for further management. Somehow ambulance brought him here. Patient does have a known history of fracture fibrillation and his heart rate has been elevated. He states that his pain is mainly on the left leg. No allergies to medication. No chest pain or shortness of breath. PFSH Past Medical History Arthritis: Yes Heart Rhythm Problems: Yes (a fib) Cancer: No Cardiovascular Problems: Yes High Cholesterol: Yes Chest Pain: Yes Diabetes: Yes Endocrine: Yes Genitourinary: No Hepatitis: No Hiatal Hernia: No Hypertension: Yes Immune Disorder: No Musculoskeletal: Yes Neurologic: Yes Psychiatric: No Reproductive: No Respiratory: Yes Thyroid Disease: Yes ?: Not Past Surgical History Abdominal Surgery: Yes (colostomy, abcess in abdomen) AICD: No Body Medical Devices: MESH ABDOMEN Cardiac Surgery: No Ear Surgery: No Endocrine Surgery: No Eye Surgery: No Genitourinary Surgery: No Gynecologic Surgery: No Joint Replacement: Yes Oral Surgery: No Pacemaker: No Thoracic Surgery: No Other Surgery: Yes (CYST REMOVAL ON FACE ) Social History Alcohol Use: No Tobacco Use: No (quit in 1987) Substance Use: No Allergies-Medications (Allergen,Severity, Reaction): Coded Allergies: No Known Allergies (Unverified , 03/17/17) Reported Meds & Prescriptions Reported Meds & Active Scripts Active Reported Magnesium Citrate Liq (Magnesium Citrate) 300 Ml Liq 296 Ml PO DAILY PRN Enema 7-19 gm/118Ml (Sodium Phosphates) 1 Susi Susi 118 Ml CO DAILY PRN Mapap (Acetaminophen) 325 Mg Tab 650 Mg PO Q4HR PRN Percocet (Oxycodone-Acetaminophen) 5-325 mg Tab 1 Tab PO Q4H PRN Duoneb (Ipratropium-Albuterol Neb) 0.5-2.5 Mg/3 Ml Neb 1 Nebule INH Q4HR NEB PRN Famotidine 20 Mg Tab 20 Mg PO BID Tramadol (Tramadol HCl) 50 Mg Tab 50 Mg PO Q8H PRN Milk of Magnesia Liq (Magnesium Hydroxide) 400 Mg/5 Ml Susp 30 Ml PO DAILY PRN Metoprolol Tartrate 50 Mg Tab 50 Mg PO BID Colace (Docusate Sodium) 100 Mg Capsule 100 Mg PO BID PRN Humalog Inj (Insulin Human Lispro) 1,000 Unit/10 Ml Vial Unknown Dose SQ ACHS Max dose at bedtime:( )units; sugars < 70,(0)units; sugars 150-199,(2)units; sugars 200-249,(4)units; sugars 250-299,(7)units; sugars 300-349,(10)units; sugars more than 349,(12)units. Lovenox Inj (Enoxaparin Sodium) 40 Mg/0.4 Ml Syr 40 Mg SQ DAILY Plavix (Clopidogrel Bisulfate) 75 Mg Tab 75 Mg PO DAILY Miralax Powder (Polyethylene Glycol 3350 Powder) 17 Gm Powd 17 Gm PO DAILY Mix and dissolve one measuring cap-ful (17 grams) in water or juice. Ferrous Sulfate DR (Ferrous Sulfate) 325 Mg Tabdr 325 Mg PO DAILY Acidophilus (Probiotic Product) 1 Cap Cap 1 Cap PO DAILY One Daily-Minerals (Multiple Vitamins W/ Minerals) 1 Tab 1 Tab PO DAILY Cipro (Ciprofloxacin HCl) 500 Mg Tab 500 Mg PO Q12HR Diltiazem ER 24 HR 240 Mg Caper 240 Mg PO DAILY Levothyroxine (Levothyroxine Sodium) 50 Mcg Tab 50 Mcg PO DAILY Atorvastatin (Atorvastatin Calcium) 10 Mg Tab 10 Mg PO HS Review of Systems ROS Limitations: Altered Mental Status, Poor Historian General / Constitutional: No: Fever, Chills, Weight Gain, Weight Loss, Other Eyes: No: Diploplia, Blurred Vision, Photophobia, Drainage, Redness, Foreign Body Sensation, Pain, Tearing, Blind Spots, Visual changes, Blindness, Other HENT: No: Headaches, Vertigo, Lightheadedness, Sore Throat, Rhinitis, Rhinorrhea, Congestion, Nosebleed, Neck Stiffness, Neck Pain, Masses, Gingival Bleeding, Dental Difficulties, Ear Discharge, Earache, Other Cardiovascular: No: Chest Pain or Discomfort, Palpitations, Irregular Rhythm, Tachycardia, Diaphoresis, Syncope, Dyspnea on exertion, Varicosities, Edema, Cyanosis, Varicosities, Phlebitis, Claudication, Other Respiratory: No: Cough, Shortness of Breath, Wheezing, Sneezing, Orthopnea, Hemoptysis, Stridor, Night Sweats, Pleuritic Pain, Other Gastrointestinal: No: Nausea, Vomiting, Diarrhea, Abdominal Pain, Hematemesis, Hematochezia, Constipation, Changes in Bowel Habits, Indigestion, Dysphagia, Loss of Appetite, Other Genitourinary: No: Urgency, Frequency, Dysuria, Nocturia, Hematuria, Decreased Urinary Output, Oliguria, Hesitancy, Dribbling, Incontinence, Pelvic Pain, Flank Pain, Dyspareunia, Discharge, Dysmenorrhea, Menorrhagia, Metorrhagia, Vaginal Bleeding, Other Musculoskeletal: No: Myalgias, Arthralgias, Limited ROM, Weakness, Cramping, Edema, Pain, Atrophy, Other Skin: Positive Other (Infection to amputation ), No Rash, No Itching, No Dryness, No Lumps, No Hives, No Change in Pigmentation, No Change in nails, No Alopecia, No Lesions, No Breast Lumps, No Breast Tenderness, No Breast Swelling Neurologic: No: Weakness, Dizziness, Syncope, Focal Abnormalities, Coordination Problem, Tremor, Ataxia, Headache, Change in Mentation, Slurred Speech, Paresthesia, Incontinence, Seizures, Sensory Disturbance, Other Psychiatric: No: Anxiety, Depression, Suicidal Ideations, Disorder of Thought, Mood Disorder, Substance Abuse, Homicidal Ideation, Other Endocrine: No: Heat Intolerance, Cold Intolerance, Polyuria, Polydipsia, Other Hematologic/Lymphatic: No: Easy Bruising, Lymph Node Enlargement, Other Physical Exam Exam Limitations: Altered Mental Status, Poor Historian Narrative GENERAL: SKIN: Bilateral infection to BKA, left worse than right. Drainage and bubbling in left. HEAD: Atraumatic. Normocephalic. EYES: Pupils equal and round. No scleral icterus. No injection or drainage. ENT: No nasal bleeding or discharge. Mucous membranes pink and moist. NECK: Trachea midline. No JVD. CARDIOVASCULAR: Tachycardic. Regular rate and rhythm. RESPIRATORY: No accessory muscle use. Clear to auscultation. Breath sounds equal bilaterally. GASTROINTESTINAL: Abdomen soft, non-tender, nondistended. Hepatic and splenic margins not palpable. MUSCULOSKELETAL: Extremities without clubbing, or cyanosis. No obvious deformities. Patient has bilateral below the knee amputations with surgical scars noted. Patient does have bruising of purulent material coming from the left leg as well as on the right. One on the left than the right. Erythematous noted. NEUROLOGICAL: Awake and alert. No obvious cranial nerve deficits. Motor grossly within normal limits. Five out of 5 muscle strength in the arms. Normal speech. PSYCHIATRIC: Patient oriented to person, and time. Appropriate mood and affect; insight and judgment limited. Data Data Last Documented VS Vital Signs Date Time Temp Pulse Resp B/P Pulse Ox O2 Delivery O2 Flow Rate FiO2 06/11/17 13:12 148 18 127/85 100 Room Air 06/11/17 12:43 2 06/11/17 11:34 98.2 Orders Complete Blood Count With Diff (06/11/17 11:33) Comprehensive Metabolic Panel (06/11/17 11:33) Prothrombin Time / Inr (Pt) (06/11/17 11:33) Act Partial Throm Time (Ptt) (06/11/17 11:33) Lactic Acid Sepsis Protocol (06/11/17 11:33) Urinalysis - C+S If Indicated (06/11/17 11:33) Blood Culture (06/11/17 11:33) Wound Culture And Gram Stain (06/11/17 11:33) Chest, Single Ap (06/11/17 11:33) Blood Glucose (06/11/17 11:33) Ecg Monitoring (06/11/17 11:33) Iv Access Insert/Monitor (06/11/17 11:33) Oximetry (06/11/17 11:33) Oxygen Administration (06/11/17 11:33) Ct Brain W/O Iv Contrast(Rout) (06/11/17 ) Vancomycin Inj (Vancomycin Inj) (06/11/17 11:45) Sodium Chlor 0.9% 1000 Ml Inj (Ns 1000 M (06/11/17 11:33) Diltiazem Inj (Cardizem Inj) (06/11/17 11:45) Piperacil-Tazo 4.5 Gm Premix (Zosyn 4.5 (06/11/17 11:37) Sodium Chlor 0.9% 1000 Ml Inj (Ns 1000 M (06/11/17 11:37) Knee, Complete (4vws) (06/11/17 ) Morphine Inj (Morphine Inj) (06/11/17 12:00) Ondansetron Inj (Zofran Inj) (06/11/17 12:00) Vital Signs (Adult) Q15MX4,Q4H (06/11/17 12:01) Net C Developer / Telemetry MATTHIEU.Q8H (06/11/17 12:01) Cardiac Rhythm MATTHIEU.Q8H (06/11/17 12:01) Notify Dr: Other (06/11/17 12:01) Diltiazem Inj (Cardizem Inj) (06/11/17 12:15) Diltiazem Inj (Cardizem Inj) (06/11/17 12:15) Sodium Chlor 0.9% 1000 Ml Inj (Ns 1000 M (06/11/17 12:22) Knee, Ltd (1 Or 2vws) (06/11/17 ) Morphine Inj (Morphine Inj) (06/11/17 13:45) Sodium Chlor 0.9% 1000 Ml Inj (Ns 1000 M (06/11/17 13:39) Radiology Film Requests (06/11/17 ) Digoxin Inj (Lanoxin Inj) (06/11/17 14:15) Labs Laboratory Tests Test 06/11/17 06/11/17 11:43 12:05 White Blood Count 17.9 TH/MM3 Red Blood Count 4.09 MIL/MM3 Hemoglobin 11.8 GM/DL Hematocrit 35.7 % Mean Corpuscular Volume 87.4 FL Mean Corpuscular Hemoglobin 28.8 PG Mean Corpuscular Hemoglobin 33.0 % Concent Red Cell Distribution Width 17.6 % Platelet Count 610 TH/MM3 Mean Platelet Volume 7.8 FL Neutrophils (%) (Auto) 75.0 % Lymphocytes (%) (Auto) 13.5 % Monocytes (%) (Auto) 8.2 % Eosinophils (%) (Auto) 2.3 % Basophils (%) (Auto) 1.0 % Neutrophils # (Auto) 13.4 TH/MM3 Lymphocytes # (Auto) 2.4 TH/MM3 Monocytes # (Auto) 1.5 TH/MM3 Eosinophils # (Auto) 0.4 TH/MM3 Basophils # (Auto) 0.2 TH/MM3 CBC Comment DIFF FINAL Differential Comment Prothrombin Time 13.3 SEC Prothromb Time International 1.2 RATIO Ratio Activated Partial 27.6 SEC Thromboplast Time Sodium Level 134 MEQ/L Potassium Level 5.1 MEQ/L Chloride Level 102 MEQ/L Carbon Dioxide Level 24.5 MEQ/L Anion Gap 8 MEQ/L Blood Urea Nitrogen 20 MG/DL Creatinine 1.04 MG/DL Estimat Glomerular Filtration 70 ML/MIN Rate Random Glucose 129 MG/DL Lactic Acid Level 2.9 mmol/L Calcium Level 8.8 MG/DL Total Bilirubin 0.3 MG/DL Aspartate Amino Transf 45 U/L (AST/SGOT) Alanine Aminotransferase 23 U/L (ALT/SGPT) Alkaline Phosphatase 108 U/L Total Protein 7.6 GM/DL Albumin 2.1 GM/DL Urine Color YELLOW Urine Turbidity CLEAR Urine pH 7.0 Urine Specific [place] 1.010 Urine Protein NEG mg/dL Urine Glucose (UA) NEG mg/dL Urine Ketones NEG mg/dL Urine Occult Blood NEG Urine Nitrite NEG Urine Bilirubin NEG Urine Urobilinogen LESS THAN 2.0 MG/DL Urine Leukocyte Esterase NEG Urine RBC LESS THAN 1 /hpf Urine WBC LESS THAN 1 /hpf Urine Mucus FEW /lpf Microscopic Urinalysis Comment CATH-CULT NOT IND MDM Medical Decision Making Medical Screen Exam Complete: Yes Emergency Medical Condition: Yes Medical Record Reviewed: Yes Interpretation(s) CBC & BMP Diagram 06/11/17 11:43 lactic acid of 2.9 Last Impressions Chest X-Ray 06/11/17 1133 Signed Impressions: Service Date/Time: June 12:35 - CONCLUSION: Possible left base infiltrate Augusto Moreno MD Knee X-Ray 06/11/17 0000 Signed Impressions: Service Date/Time: June 13:13 - CONCLUSION: Significant soft tissue swelling surrounding the stump of the [id number] amputation. No destructive bone changes or evidence of joint effusion. Moderate to severe knee arthropathy. 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 No destructive bony changes, joint effusion or prosthetic loosening. Kevin Adams MD Head CT 06/11/17 0000 Signed Impressions: Service Date/Time: June 12:21 - CONCLUSION: No acute intracranial findings Augusto Moreno MD EKG shows atrial fibrillation in RVR. Read by me and attending. Differential Diagnosis Sepsis Wound Infection AMS Postsurgical complication Narrative Course 72-year-old male that presents to the ED for evaluation of possible wound infection. Patient was properly examined and was found to have signs and symptoms very consistent with sepsis and atrial fibrillation. Patient does appear to be somewhat septic on exam. Somewhat altered which appears to be chronic for the patient. He is not the best historian. Charge nurse was able to contact the intermediate where patient lives and they confirmed that Dr. Martinez was the one who did the surgery. I spoke on the phone with Dr. Martinez who tells me that he was very specific with the ambulance to send him to [facility] what he just had surgery and somehow he was sent here instead. He wants the patient to be transferred. Labs and imaging were ordered. Patient was started on IV Cardizem as well as fluids and antibiotics. Case was discussed in my attending Dr. Felton who was male well fall findings and Dr. Martinez's recommendation of transfer to [facility] secondary to recent admission to that hospital and agrees with plan. He took over case pending transfer. Sepsis Criteria SIRS Criteria (2 or more): Heart rate over 90, WBC > 69304, < 4000 or > 10% bands Sepsis Criteria (SIRS+source): Infect source susp/known Criteria Outcome: Meets sepsis criteria Diagnosis Primary Impression: Wound infection after surgery Qualified Code: T81.4XXA - Postoperative wound infection, initial encounter Additional Impressions: Leukocytosis Qualified Code: D72.825 - Bandemia Sepsis Qualified Code: A41.9 - Sepsis, due to unspecified organism Afib Qualified Code: I48.2 - Chronic atrial fibrillation Disposition: 70 TRANSFER TO OTHER FACILITY Condition: Stable Toni Hedrick Jun 11, 2017 11:41
[2017-06-11] MEDS ORDERED: DILTIAZEM HCL 25 MG/5 ML VIAL IV ONE (11:45)
[2017-06-11] MEDS ORDERED: VANCOMYCIN INJ 1,000 MG in SODIUM CHLOR 0.9% 250 ML INJ 250 ML IV ONE (11:45)
[2017-06-11] MEDS ORDERED: ONDANSETRON HCL 4 MG/2 ML VIAL IV PUSH ONE (12:00)
[2017-06-11] MEDS ORDERED: MORPHINE SULFATE 4 MG/ML INJ IV PUSH ONE ×2 (12:00→13:45)
[2017-06-11 12:07] LABS: AUTOMATED NEUTROPHIL # 13.4 TH/MM3 (1.8-7.7); BASOPHIL # 0.2 TH/MM3 (0-0.2); EOSINOPHIL # 0.4 TH/MM3 (0-0.4); EOSINOPHIL % 2.3 % (0.0-4.0); HEMATOCRIT 35.7 % (39.0-51.0); HEMO FLAGS DIFF FINAL; LYMPH % 13.5 % (9.0-44.0); LYMPHOCYTE # 2.4 TH/MM3 (1.0-4.8); MEAN CELL VOLUME 87.4 FL (80.0-100.0); MEAN CORPUSCULAR HEMOGLOBIN 28.8 PG (27.0-34.0); MONO % 8.2 % (0.0-8.0); PLATELET COUNT 610 TH/MM3 (150-450); RED BLOOD COUNT 4.09 MIL/MM3 (4.50-5.90); RED CELL DISTRIBUTION WIDTH 17.6 % (11.6-17.2); WHITE BLOOD COUNT 17.9 TH/MM3 (4.0-11.0)
[2017-06-11] MEDS ORDERED: DILTIAZEM INJ 125 MG in SODIUM CHLORIDE 0.9% INJ 100 ML IV SCH (12:15)
[2017-06-11] MEDS ORDERED: DILTIAZEM HCL 25 MG/5 ML VIAL IVP ONE (12:15)
[2017-06-11 12:16] LABS: APTT (PATIENT) 27.6 SEC (24.3-30.1); INTERNATIONAL NORMALIZED RATIO 1.2 RATIO; PROTHROMBIN TIME - PATIENT 13.3 SEC (9.8-11.6)
[2017-06-11 12:20] LABS: BLOOD, URINE NEG (NEG); COMMENT (UR) CATH-CULT NOT IND; CULTURE IF INDICATED CATH CULTURE NOT IND; GLUCOSE,URINE NEG (NEG); KETONE, URINE NEG (NEG); MUCUS URINE FEW /lpf (OCC); NITRITE,URINE NEG (NEG); URINE COLOR YELLOW (YELLW/STRAW)
[2017-06-11 12:21] LABS: ANION GAP 8 MEQ/L (5-15); AST (GOT) 45 U/L (15-37); BICARBONATE 24.5 MEQ/L (21.0-32.0); BLOOD UREA NITROGEN 20 MG/DL (7-18); CHLORIDE 102 MEQ/L (98-107); GLOMERULAR FILTRATION RATE 70 ML/MIN (>89); POTASSIUM 5.1 MEQ/L (3.5-5.1); SODIUM (NA) 134 MEQ/L (136-145)
[2017-06-11 12:22] LABS: ALT (GPT) 23 U/L (12-78)
[2017-06-11 12:24] LABS: ALKALINE PHOSPHATASE 108 U/L (45-117); TOTAL BILIRUBIN ADULT 0.3 MG/DL (0.2-1.0)
--- NOTE | 2017-06-11 12:34 | RADRPT ---
EXAM DATE/TIME: 06/11/2017 12:21 [place] COMPARISON: No previous studies available for comparison. INDICATIONS : Altered mental status. RADIATION DOSE: 36.80 CTDIvol (mGy) MEDICAL HISTORY : Cardiovascular disease. Hypertension. Diabetes mellitus type 2. SURGICAL HISTORY : None. ENCOUNTER: Initial ACUITY: 1 day PAIN SCALE: 0/10 LOCATION: cranial TECHNIQUE: Multiple contiguous axial images were obtained of the head. Using automated exposure control and adj ustment of the mA and/or kV according to patient size, radiation dose was kept as low as reasonably a chievable to obtain optimal diagnostic quality images. DICOM format image data is available electro nically for review and comparison. FINDINGS: Ventricles are symmetric and mildly prominent. There is a lacunar infarct adjacent to the right cauda te head. This appears remote. There is no evidence of intracranial mass or hemorrhage. There is nothi ng to suggest acute infarction. The extracranial structures are benign and intact. CONCLUSION: No acute intracranial findings Augusto Moreno MD on June 11, 2017 at 12:31 Board Certified Radiologist. This report was verified electronically.
--- NOTE | 2017-06-11 12:52 | PD ---
Data Data Last Documented VS Vital Signs Date Time Temp Pulse Resp B/P Pulse Ox O2 Delivery O2 Flow Rate FiO2 06/11/17 13:12 148 18 127/85 100 Room Air 06/11/17 12:43 2 06/11/17 11:34 98.2 Orders Complete Blood Count With Diff (06/11/17 11:33) Comprehensive Metabolic Panel (06/11/17 11:33) Prothrombin Time / Inr (Pt) (06/11/17 11:33) Act Partial Throm Time (Ptt) (06/11/17 11:33) Lactic Acid Sepsis Protocol (06/11/17 11:33) Urinalysis - C+S If Indicated (06/11/17 11:33) Blood Culture (06/11/17 11:33) Wound Culture And Gram Stain (06/11/17 11:33) Chest, Single Ap (06/11/17 11:33) Blood Glucose (06/11/17 11:33) Ecg Monitoring (06/11/17 11:33) Iv Access Insert/Monitor (06/11/17 11:33) Oximetry (06/11/17 11:33) Oxygen Administration (06/11/17 11:33) Ct Brain W/O Iv Contrast(Rout) (06/11/17 ) Vancomycin Inj (Vancomycin Inj) (06/11/17 11:45) Sodium Chlor 0.9% 1000 Ml Inj (Ns 1000 M (06/11/17 11:33) Diltiazem Inj (Cardizem Inj) (06/11/17 11:45) Piperacil-Tazo 4.5 Gm Premix (Zosyn 4.5 (06/11/17 11:37) Sodium Chlor 0.9% 1000 Ml Inj (Ns 1000 M (06/11/17 11:37) Knee, Complete (4vws) (06/11/17 ) Morphine Inj (Morphine Inj) (06/11/17 12:00) Ondansetron Inj (Zofran Inj) (06/11/17 12:00) Vital Signs (Adult) Q15MX4,Q4H (06/11/17 12:01) Spool Cleaner / Telemetry MATTHIEU.Q8H (06/11/17 12:01) Cardiac Rhythm MATTHIEU.Q8H (06/11/17 12:01) Notify Dr: Other (06/11/17 12:01) Diltiazem Inj (Cardizem Inj) (06/11/17 12:15) Diltiazem Inj (Cardizem Inj) (06/11/17 12:15) Sodium Chlor 0.9% 1000 Ml Inj (Ns 1000 M (06/11/17 12:22) Knee, Ltd (1 Or 2vws) (06/11/17 ) Morphine Inj (Morphine Inj) (06/11/17 13:45) Sodium Chlor 0.9% 1000 Ml Inj (Ns 1000 M (06/11/17 13:39) Radiology Film Requests (06/11/17 ) Digoxin Inj (Lanoxin Inj) (06/11/17 14:15) Labs Laboratory Tests Test 06/11/17 06/11/17 11:43 12:05 White Blood Count 17.9 TH/MM3 Red Blood Count 4.09 MIL/MM3 Hemoglobin 11.8 GM/DL Hematocrit 35.7 % Mean Corpuscular Volume 87.4 FL Mean Corpuscular Hemoglobin 28.8 PG Mean Corpuscular Hemoglobin 33.0 % Concent Red Cell Distribution Width 17.6 % Platelet Count 610 TH/MM3 Mean Platelet Volume 7.8 FL Neutrophils (%) (Auto) 75.0 % Lymphocytes (%) (Auto) 13.5 % Monocytes (%) (Auto) 8.2 % Eosinophils (%) (Auto) 2.3 % Basophils (%) (Auto) 1.0 % Neutrophils # (Auto) 13.4 TH/MM3 Lymphocytes # (Auto) 2.4 TH/MM3 Monocytes # (Auto) 1.5 TH/MM3 Eosinophils # (Auto) 0.4 TH/MM3 Basophils # (Auto) 0.2 TH/MM3 CBC Comment DIFF FINAL Differential Comment Prothrombin Time 13.3 SEC Prothromb Time International 1.2 RATIO Ratio Activated Partial 27.6 SEC Thromboplast Time Sodium Level 134 MEQ/L Potassium Level 5.1 MEQ/L Chloride Level 102 MEQ/L Carbon Dioxide Level 24.5 MEQ/L Anion Gap 8 MEQ/L Blood Urea Nitrogen 20 MG/DL Creatinine 1.04 MG/DL Estimat Glomerular Filtration 70 ML/MIN Rate Random Glucose 129 MG/DL Lactic Acid Level 2.9 mmol/L Calcium Level 8.8 MG/DL Total Bilirubin 0.3 MG/DL Aspartate Amino Transf 45 U/L (AST/SGOT) Alanine Aminotransferase 23 U/L (ALT/SGPT) Alkaline Phosphatase 108 U/L Total Protein 7.6 GM/DL Albumin 2.1 GM/DL Urine Color YELLOW Urine Turbidity CLEAR Urine pH 7.0 Urine Specific [place] 1.010 Urine Protein NEG mg/dL Urine Glucose (UA) NEG mg/dL Urine Ketones NEG mg/dL Urine Occult Blood NEG Urine Nitrite NEG Urine Bilirubin NEG Urine Urobilinogen LESS THAN 2.0 MG/DL Urine Leukocyte Esterase NEG Urine RBC LESS THAN 1 /hpf Urine WBC LESS THAN 1 /hpf Urine Mucus FEW /lpf Microscopic Urinalysis Comment CATH-CULT NOT IND MDM Medical Record Reviewed: Yes Supervised Visit with [facility]: Yes Narrative Course I, Dr. Felton, have reviewed the advance practice practitioner's documentation and am in agreement unless otherwise dictated below, met with the patient face to face, made the diagnosis, and the medical decision making was done by me. 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 Vancomycin and Zosyn started. The patient will go to [facility] where the initial surgery was performed and where continuity of care can be maintained from a surgical perspective. This was discussed with Dr. Sutherland of orthopedic surgery. This was discussed with Dr. Arizmendi of the ED. of note the patient has been in A. fib with RVR and following diltiazem 20 mg boluses 2 and a diltiazem drip at 15 for about an hour or so a 0.25 mg IV dose of digoxin was given. CBC & BMP Diagram 06/11/17 11:43 Last 24 hours Impressions Chest X-Ray 06/11/17 1133 Signed Impressions: Service Date/Time: June 12:35 - CONCLUSION: Possible left base infiltrate Augusto Moreno MD Knee X-Ray 06/11/17 0000 Signed Impressions: Service Date/Time: June 13:13 - CONCLUSION: Significant soft tissue swelling surrounding the stump of the [id number] amputation. No destructive bone changes or evidence of joint effusion. Moderate to severe knee arthropathy. 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 No destructive bony changes, joint effusion or prosthetic loosening. Kevin Adams MD Head CT 06/11/17 0000 Signed Impressions: Service Date/Time: June 12:21 - CONCLUSION: No acute intracranial findings MD Jose Francisco Gates Daniel C. MD Jun 11, 2017 12:52
--- NOTE | 2017-06-11 12:58 | RADRPT ---
EXAM DATE/TIME: 06/11/2017 12:35 [facility] COMPARISON: CHEST PA & LAT, July 14, 2014, 11:28. CHEST SINGLE AP, March 17, 2017, 7:15. CHEST SINGLE AP, Se pt2013, 11:08. INDICATIONS : Fever. MEDICAL HISTORY : Hypertension. Cardiovascular disease. Diabetes mellitus type II. SURGICAL HISTORY : double amputee below the knee 05/18 ENCOUNTER: Initial ACUITY: 1 day PAIN SCORE: 0/10 LOCATION: Bilateral chest FINDINGS: Medial left diaphragm is not well-seen. There may be mild left base infiltrate associated. Right lung is grossly clear. No significant effusion is suspected. Cardiomediastinal contours are satisfactory for technique and projection. CONCLUSION: Possible left base infiltrate Augusto Moreno MD on June 11, 2017 at 12:55 Board Certified Radiologist. This report was verified electronically.
[2017-06-11] MEDS ORDERED: DILT-48 PO (13:17)
[2017-06-11] MEDS ORDERED: CIPR-9 PO (13:17)
[2017-06-11] MEDS ORDERED: PROB1CAP12 PO (13:23)
[2017-06-11] MEDS ORDERED: ONETAB22 PO (13:23)
[2017-06-11] MEDS ORDERED: FERR325T2 PO (13:29)
[2017-06-11] MEDS ORDERED: ENOX40P SQ (13:31)
[2017-06-11] MEDS ORDERED: MIRA3350 PO (13:31)
[2017-06-11] MEDS ORDERED: PLAV75TA29 PO (13:31)
[2017-06-11] MEDS ORDERED: HUMALOG SQ (13:32)
[2017-06-11] MEDS ORDERED: METO50TA PO (13:34)
[2017-06-11] MEDS ORDERED: COLA100C PO (13:34)
[2017-06-11] MEDS ORDERED: MILKSUS PO (13:38)
--- NOTE | 2017-06-11 13:38 | RADRPT ---
EXAM DATE/TIME: 06/11/2017 12:38 [facility] COMPARISON: No previous studies available for comparison. INDICATIONS : Possible infection left knee. MEDICAL HISTORY : Cardiovascular disease. Hypertension Diabetes mellitus type II. SURGICAL HISTORY : left knee replacement and left below the knee amputation 05/18 ENCOUNTER: Initial ACUITY: 1 day PAIN SCORE: 8/10 LOCATION: Left knee FINDINGS: Four view examination of the left knee demonstrates postsurgical changes following left knee replacem ent and below the knee amputation. The knee joint including the prosthetic components appear unremarkable. There is no evidence of loose keya, acute fracture or destructive changes. CONCLUSION: Status post left knee replacement and below the knee amputation. No destructive bony changes, joint effusion or prosthetic loosening. Kevin Adams MD on June 11, 2017 at 13:34 Board Certified Radiologist. This report was verified electronically.
[2017-06-11] MEDS ORDERED: TRAM50TA PO (13:42)
[2017-06-11] MEDS ORDERED: IPRASOL INH (13:42)
[2017-06-11] MEDS ORDERED: PERC5TAB12 PO (13:42)
[2017-06-11] MEDS ORDERED: FAMO20TA2 PO (13:42)
[2017-06-11] MEDS ORDERED: MAPA325T PO (13:44)
[2017-06-11 13:54] LABS: LACTIC ACID GHOST NOT REPORTABLE
[2017-06-11] MEDS ORDERED: ENEMENE3 PR (13:54)
[2017-06-11] MEDS ORDERED: MAGNSOL2 PO (13:54)
--- NOTE | 2017-06-11 13:54 | RADRPT ---
EXAM DATE/TIME: 06/11/2017 13:13 [facility] COMPARISON: No previous studies available for comparison. INDICATIONS : Right knee pain, denies injury Stump redness with drainage MEDICAL HISTORY : Hypertension. Cardiovascular disease. Diabetes mellitus type II. SURGICAL HISTORY : double amputee below the knee 05/18 ENCOUNTER: Initial ACUITY: 1 day PAIN SCORE: 6/10 LOCATION: Right Knee FINDINGS: Two view examination of the right knee demonstrates a [id number] amputation. The knee joint demonstrates significant arthropathy with joint space narrowing, subchondral sclerosis and mild marginal spurring. There are no destructive changes or joint effusion. Significant soft tissue swelling is seen surrounding the proximal tibial and fibular shaft stump CONCLUSION: Significant soft tissue swelling surrounding the stump of the [id number] amputation. No destructive bone changes or evidence of joint effusion. Moderate to severe knee arthropathy. Kevin Adams MD on June 11, 2017 at 13:50 Board Certified Radiologist. This report was verified electronically.
[2017-06-11] MEDS ORDERED: DIGOXIN 0.5 MG/2 ML VIAL IV PUSH ONE (14:15)
--- NOTE | 2017-06-12 16:49 | EKG ---
Date Performed: 06/11/2017 Time Performed: 11:30:57 PTAGE: 72 years EKG: ATRIAL FIBRILLATION WITH RAPID VENTRICULAR RESPONSE Compared to previous tracing, ventricul ar response to the atrial fibrillation is faster ABNORMAL RHYTHM ECG PREVIOUS TRACING : 03/17/2017 07.18 DOCTOR: James Moore Interpretating Date/Time 06/12/2017 16:47:50
== END 2017-06-11 15:30 | disposition short-term general hospital (02) ==
LOC: NEPE 11:11
DX: T81.4XXA Infection following a procedure, initial encounter (principal); A41.89 Other specified sepsis; I48.2 Chronic atrial fibrillation; Z89.512 Acquired absence of left leg below knee; Z89.511 Acquired absence of right leg below knee
CPT/HCPCS: 70450; 71010; 73560; 73564; 80053; 81001; 83605; 85025; 85610; 85730; 87040; 87070; 87077; 87186; 93005; 96374; 96375; 96376; 99285; J1160; J2270; J2405; J2543; J3370; J7030; J7050